=== PATIENT | male | born 2000 | race Caucasian/White ===

== ENCOUNTER 2025-07-11 13:40 | Emergency (ER) | payer BC, SELFPAY ==
[2025-07-11] VITALS (50 sets, daily range): BP systolic 101–160; BP diastolic 71–123; PULSE 58–137; RESP 7–33; TEMP 36.7; O2SAT 90–100; BMI 22.2
--- OUTSIDE RECORDS SUMMARY | 2025-07-11 13:43 | XMS_ITS | Clinical Summary ---
Author Organization [facility] Address [address] [place] [address] Care Team Providers Care Welder [employer] Name Role Phone Cordelia Birmingham MD Primary Care Provider Allergies Active Allergy Reactions Criticality Noted Date Comments Pollen Extracts Other - Describe In Comment Field Low 01/12/2019 Seasonal allergies; trees, plants, pollen Medications loratadine (CLARITIN) 10 mg tablet Take 1 tablet by mouth once daily if needed for Allergy Symptoms. 0 07/17/20 17 Active cholecalciferol, Vitamin D3, 2,000 unit tablet Take 1 Tablet (2,000 units) by mouth once daily. 0 09/11/20 21 Active methylphenidate HCl (Ritalin LA) 10 mg SR capsuleIndication s:ADHD (attention deficit hyperactivity disorder), inattentive type Take 1 Capsule (10 mg) by mouth once daily. 30 Capsule 03/19/20 25 Active FLUoxetine (PROZAC) 20 mg capsuleIndication s:Mild episode of recurrent major depressive disorder Take 1 Capsule (20 mg) by mouth once daily. 90 Capsule 5 4:18 PM CDT 06/15/20 25 Active spironolactone (ALDACTONE) 50 mg tabletIndications :Gender 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 Take 1 Tablet (50 mg) by mouth two times daily. 180 Tablet 5 4:18 PM CDT 06/15/20 Active estradiol valerate (DELESTROGEN) 10 mg/mL intramuscular oilIndications:Ge nder 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 Inject 5 mg intramuscular once weekly. 5 mL 06/22/20 25 025 Active Safety Randolph (BD Eclipse) 25 gauge x 1 ndleIndications:G wilfredo 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 As directed. 100 Each 06/22/20 25 Active Syringe (Disposable) 1 mL syrgIndications:G wilfredo 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 As directed. 1 mL syringe combined with 25G 1 inch needle 100 Each 06/23/20 25 Active Syringe with Needle (Disp) 3 mL 25 gauge x 1 syrgIndications:G wilfredo 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 As directed. 100 Each 06/23/20 25 Active FLUoxetine 40 mg capsuleIndication s:Mild episode of recurrent major depressive disorder Take 1 Capsule (40 mg) by mouth once daily. 30 Capsule 5 5 4:53 PM CDT 03/09/20 25 025 Discontin ued(*Medi cation adjustmen t) estradioL 1 mg tabletIndications :Gender 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 Take 6 Tablets (6 mg) by mouth once daily. 540 Tablet 5 2:31 PM CDT 03/10/20 25 025 Discontin ued(Reord er (E-cancel not sent)) spironolactone 50 mg tabletIndications :Gender 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 Take 1 Tablet (50 mg) by mouth two times daily. 120 Tablet 05/07/20 25 025 Discontin ued(Reord er (E-cancel not sent)) estradioL (ESTRACE) 1 mg tabletIndications :Gender 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 Take 6 Tablets (6 mg) by mouth once daily. 540 Tablet 06/15/20 25 025 Discontin ued(*Medi cation adjustmen t) Syringe (Disposable) 1 mL syrgIndications:G wilfredo 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 As directed. 100 Each 06/22/20 25 025 Discontin ued(Reord er (E-cancel not sent)) Active Problems Problem Noted Date Diagnosed Date Controlled substance agreement signed 01/22/2022 Overview (01/22/2022): Signed 01/22/2022 Haley Gonzales DNP, MEDICAL DEVICE ENGINEER, [employer] APPRENTICE/NFLD Psychairty Anxiety and depression 05/29/2021 Moderate recurrent major depression Attention deficit hyperactivity disorder (ADHD) Gender dysphoria Encounters Date Type Department Care Team Description 06/28/2025 2:00 PM CDT Education [facility] [address] [place] [address] Education (Estradiol IM injection teaching) 06/28/2025 Travel 06/25/2025 Telephone [facility] [address] [place] [address] Cordelia Birmingham MD Prior Authorization (estradiol valerate (DELESTROGEN) 10 mg/mL intramuscular oil APPROVED June 25, 2025 - 11/24/2222) 06/23/[address] [address] Cordelia Birmingham MD Pharmacist Medication Management (Syringe (Disposable) 1 mL syrg//Safety Randolph (BD Eclipse) 25 gauge x 1 ndle) 06/22/2025 Telephone [facility] [address] [place] [address] Cordelia Birmingham MD Follow Up 06/15/2025 2:50 PM CDT Office Visit [address] [address] Cordelia Birmingham MD Medication Management 06/15/2025 Travel 06/05/2025 Travel 05/05/[address] [address] Cordelia Birmingham MD Refill Request (Spironolactone) from Last 3 Months Immunizations Immunization Administration Dates Next Due AMB Influenza, (Flumist) Ashley e Intranasal,LAIV4 (Flu Clinic Only) 09/29/2010,09/22/2008 COVID-19 vaccine ([email or web address] 30mcg/0.3mL) 12YO+ BIVALENT PF, MDV 09/14/2022 COVID-19 vaccine ([employer] 30mcg/0.3mL) PF, MDV 03/25/2021,03/03/2021 DTaP 05/07/2006, 3,2001,09/15,2001 HIB-HepB (Comvax) 2001,2001 HPV 9 (Gardasil 9) 01/12/2019,10/10/2017, 017 Hepatitis A (Peds) 01/12/2019,10/10/2017 Hepatitis B (Peds) 10/10/2017 INFLUENZA, IIV3 PF (AGE >= 6 MO) 08/25/2024 Inactivated Polio Vaccine 05/07/2006,,2001,07/18 Influenza Virus, Unspecified 08/31/2021, 09/21/2020,09/03/2018,10/10,09/03/2016,09/07/2015,08/26/2014 ,11/16/2013,09/29/2012,09/17/2011 Influenza, IIV3 (Age 6-35 mos) 09/17/2011 Influenza, IIV3 (Age >=3 years) 11/16/2013,09/29,09/17/2011 Influenza, IIV4 09/14/2022,,09/21/2020,10/10,09/03/2016,08/26/2014 Influenza, IIV4 (=>6mos) MDV 09/03/2018,09/07/20 15 Influenza, Injectable, Mdck, Quadrivalent, W/preservative 09/21/2020 Influenza,LAIV3 Live Intrana krishan (Flumist) 09/29/2010,09/22/2008 Influenza,LAIV4 Live Intrana krishan (Flumist) 09/29/2010,09/23/2009,09/22/2008 MENINGOCOCCAL VACCINE 2 VIAL 2MO-55YO (MENVEO) 07/17/2017 MMR 07/17/2017,05/05/2002 Meningococcal B 09/22/2019,08/06/2019 Pneumococcal conj 7-Valent (Prevnar 7) 0 05/07/2002,02/04/2002,2001,07/18 Tdap 08/31/2023,09/29/2013 Varicella Vaccine 09/29/2013,02/09/2004 Family History Medical History Relation Name Comments Anxiety disorder Sister Cancer-colon No Family History Cancer-prostate No Family History Diabetes No Family History Heart Disease No Family History Relation Name Status Comments Sister Social History Tobacco Use Types Packs/Day Years Used Date Smoking Tobacco: Never Smokeless Tobacco: Never Tobacco Cessation:Counseling Given: Not Answered Comments:no exposure Alcohol Use Standard Drinks/Week Comments Yes 0 (1 standard drink = 0.6 oz pur e alcohol) Occasionally. - 11/26/2022 PHQ-2 Answer Date Recorded PHQ-2 TOTAL SCORE 0 03/09/2025 Social Connections Answer Date Recorded Do you often feel lonely or isolated from those around you? 0 12/07/2024 Alcohol Use Answer Date Recorded How often do you have a drink containing alcohol ? 2 07/31/2022 Average Number of Drinks Not on file 022 Frequency of Binge Drinking Not on file 04/2022 Financial Resource Strain Answer Date R ecorded Difficulty of Paying Living Expenses 3 12/07/2024 Difficulty of Paying Living Expenses Not on file 12/07/2024 Food Insecurity Answer Date Recorded Do you worry your food will run out before you are able to buy more? 1 12/07/2024 Transportation Needs Answer Date Record ed Does lack of transportation keep you from medica l appointments? 1 12/07/2024 Does lack of transportation keep you from work, meetings or getting things that you need? 1 12/07/2024 Housing Stability Answer Date Recorded What is your housing situation today? 1 12/07/2024 Utilities Answer Date Recorded Do you have trouble paying f or utilities (for example, heat, electricity, water, phone)? 1 12/07/2024 Sex and Gender Information Value Date Recorded Sex Assigned at Male 09/11/2021 12:45 PM CDT Legal Sex Male 5:24 AM HOOKER ON Gender Identity Transgender Female 04/25/2025 9: 35 PM CDT Sexual Orientation Bisexual 09/11/2021 12 :45 PM CDT Obstetrics History Last Filed Vital Signs Vital Sign Reading Time Taken Comments Blood Pressure 124/74 06/15/2025 3:03 PM CDT Pulse 93 06/15/2025 3:03 PM CDT Temperature 36.9 C (98.5 F) 11/23/2022 2:03 PM HOOKER ON Respiratory Rate 15 02/08/2022 9:48 AM CDT Oxygen Saturation 98% 06/15/2025 3:03 PM CDT Inhaled Oxygen Concentration - - Weight 71.2 kg (157 lb) 06/15/2025 3:03 PM CDT Height 176.5 cm (5' 9.5) 04/16/2023 10:40 AM CD T Body Mass Index 22.85 04/16/2023 10:40 AM CDT Plan of Treatment Upcoming Encounters Date Type Department Care Team (Late st Contact Info) Description 08/02/2025 1:00 PM CDT Office Visit [facility] [address] [place] [address] Haley Gonzales, VERA [address] [place] [address] 09/15/2025 2:00 PM CDT Office Visit [facility] [address] [place] [address] Cordelia Birmingham MD [address] [place] [address] Health Maintenance Due Date Last Done Comments BMI (ht and wt on same day) for age 18+ 04/16/2024 04/16/2023, 11/26/2022, 11/23/2022, Additional history exists Chlamydia for age 16-24 04/15/2025 04/15/2024, 04/15 Influenza Vaccine (#1) 2025 , 09/14/2022, 08/31/2021, Additional history exists Depression screening for age 12+ 03/10/2026 03/10/2025, 03/09/2025, 11/27/2024, Additional history exists Tetanus booster 08/31/2033 08/31/2023, 09/29/2013 Pap test for age 21-65 04/23/2073 Postp oned from 2022 (Other) Pneumococcal series for age 6-49 Aged Out 05/07/2002, 02/04/2002, 2001, Additional history exists No longer eligible based on patient's age to complete this topic Hepatitis B series for 19+ Completed 10/10, 2001, 2001 HPV series for age 9-26 Completed 01/12/20 19, 10/10/2017, 07/17/2017 HPV series for age 9-26 Completed 01/12/20 19, 10/10/2017, 07/17/2017 HIV for age 15-65 Completed 04/15/2024 Hepatitis C screening for age 18-79 Completed 04/15/2024 COVID-19 vaccine series Completed 08/25/20, 09/14/2022, 03/25/2021, Additional history exists Procedures Procedure Name Priority Date/Time Associated Diagnosis Comments COMP METABOLIC PANEL Routine 06/15/2025 4:00 PM CDT Gender 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 ESTRADIOL Routine 06/15/2025 4:00 PM CDT Gender 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 TESTOSTERONE,TOTA L Routine 06/15/2025 4:00 PM CDT Gender 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 GC CHLAMYDIA TRACH PROBE Routine 04/15/2024 12:14 PM CDT Has multiple sexual partners ANTI HIV 1/2 Routine 04/15/2024 12:11 PM CDT Screening for HIV (human immunodeficiency virus) ANTI HCV Routine 04/15/2024 12:11 PM CDT Need for hepatitis C screening test from Last 3 Months or Most Recently Relevant to Health Maintenance Results * TESTOSTERONE,TOTAL (06/15/2025 4:00 PM CDT) TESTOSTERONE, TOTAL, MS 364 250 - 1,100 ng/dL [facility] Comment: Men with clinically significant hypogonadal symptoms and testosterone values repeatedly in the range of the 200-300 ng/dL or less, may benefit from testosterone treatment after adequate risk and benefits counseling. For additional information, please refer to https://education.Anametrix.Tradono/faq/TotalTestosteroneLCMSMS (This link is being provided for informational/educational purposes only.) (Note) This test was developed and its analytical performance characteristics have been determined by [employer]. It has not been cleared or approved by the FDA. This assay has been validated pursuant to the CLIA regulations and is used for clinical purposes. [facility] [address] [facility] [address] [facility] [address] Carmencita Weiss MD, PhD Blood BLOOD SPECIMEN / Unknown 06/15/2025 4:00 PM CDT 06/15/2025 4:01 PM CDT Cordelia Birmingham MD CHEMISTRY Final Resul t [facility] [address] [place] [phone], [facility] [address] [address], [address] [place] [address] * (ABNORMAL) ESTRADIOL (06/15/2025 4:00 PM CDT) ESTRADIOL 40(H) < OR = 39 pg/mL Last 2 Left[facility] Comment: Reference range established on post-pubertal patient population. No pre-pubertal reference range established using this assay. For any patients for whom low Estradiol levels are anticipated (e.g. males, pre-pubertal children and hypogonadal/post-menopausal females), the Last 2 Left [facility] Estradiol, Ultrasensitive, LCMSMS assay is recommended (order code 53707). Please note: patients being treated with the drug fulvestrant (Faslodex(R)) have demonstrated significant interference in immunoassay methods for estradiol measurement. The cross reactivity could lead to falsely elevated estradiol test results leading to an inappropriate clinical assessment of estrogen status. Last 2 Left order code [id number], Ultrasensitive LC/MS/MS demonstrates negligible cross reactivity with fulvestrant. Blood BLOOD SPECIMEN / Unknown 06/15/2025 4:00 PM CDT 06/15/2025 4:01 PM CDT us Cordelia Birmingham MD SEND OUTS Final Resul t [facility] [address] [place] [address], [facility] [address] [place] [address] * (ABNORMAL) COMP METABOLIC PANEL (06/15/2025 4:00 PM CDT) GLUCOSE 77 65 - 99 mg/dL [facility] Comment: Fasting reference interval UREA NITROGEN (BUN) 16 7 - 25 mg/dL [facility] CREATININE 0.97 0.60 - 1.24 mg/dL [facility] EGFR 112 > OR = 60 mL/min/1. 73m2 [facility] BUN/CREATININE RATIO SEE NOTE: 6 - 22 (calc) [facility] Comment: Not Reported: BUN and Creatinine are within reference range. SODIUM 138 135 - 146 mmol/L [facility] POTASSIUM 4.0 3.5 - 5.3 mmol/L [facility] CHLORIDE 102 98 - 110 mmol/L [facility] CARBON DIOXIDE 27 20 - 32 mmol/L [facility] CALCIUM 9.9 8.6 - 10.3 mg/dL [facility] PROTEIN, TOTAL 7.2 6.1 - 8.1 g/dL [facility] ALBUMIN 4.7 3.6 - 5.1 g/dL [facility] GLOBULIN 2.5 1.9 - 3.7 g/dL (calc) [facility] ALBUMIN/GLOBULIN RATIO 1.9 1.0 - 2.5 (calc) [facility] BILIRUBIN, TOTAL 0.6 0.2 - 1.2 mg/dL [facility] ALKALINE PHOSPHATASE 51 36 - 130 U/L [facility] AST 18 10 - 40 U/L [facility] ALT 6(L) 9 - 46 U/L [facility] Blood BLOOD SPECIMEN / Unknown 06/15/2025 4:00 PM CDT 06/15/2025 4:01 PM CDT Cordelia Birmingham MD CHEMISTRY Final Resul t Performing Organization Address [facility] Co de Phone Number [facility] [address] [place] [address], [facility] [employer] [address] [place] [address] * GC & CHLAMYDIA DNA PCR [[id number]] (04/15/2024 12:14 PM CDT) Pathologist [facility] CHLAMYDIA PROBE Negative 12:20 PM CDT [facility] N GONORRHOEAE PROBE Negative 04/16/2024 12:20 PM CDT [facility] Other URINE SPECIMEN / Unknown Non-Blood / Unknown 04/15/2024 12:14 PM CDT 04/15/2024 12:14 PM CDT Cordelia Birmingham MD MICROBIOLOGY Final Resul t Performing Organization Address City/[facility]/ZIP Co de Phone Number [facility] [address] [place] [address], * ANTI HCV (04/15/2024 12:11 PM CDT) Pathologist [facility] HEPATITIS C ANTIBODY Non-Reacti ve Non-React brianna 04/16/2024 1:17 AM CDT [facility] Comment:Please note, per www .CDC.gov: If a patient is known to be at high risk of HCV infection, or is symptomatic, and the physician's suspicion of HCV infection is high, HCV RNA testing is often employed and is of diagnostic value, even after an initial negative anti-HCV test result. Blood BLOOD SPECIMEN / Unknown Venipuncture / Unknown 04/15/2024 12:11 PM CDT 04/15/2024 12:12 PM CDT us Cordelia Birmingham MD SEND OUTS Final Resul t Performing Organization Address City/[facility] Co de Phone Number [facility] [address] [place] [address], [place] * ANTI HIV 1/2 [42485.0] (04/15/2024 12:11 PM CDT) HIV-1/HIV-2 SCREEN Non-Reacti ve Non-Reacti ve 04/16/2024 1:11 AM CDT [facility] Comment:HIV-1 p24 and HIV-1/ HIV-2 Ab Not Detected. Blood BLOOD SPECIMEN / Unknown Venipuncture / Unknown 04/15/2024 12:11 PM CDT 04/15/2024 12:12 PM CDT us Cordelia Birmingham MD SEND OUTS Final Resul t Performing Organization Address [facility] Co de Phone Number [facility] [address] [place] [id number], [place] from Last 3 Months or Most Recently Relevant to Health Maintenance Insurance [facility] Care Teams [employer] Relationship Specialty Start Date End Date Cordelia Birmingham MD [address] [place] [address] PCP - General Family Practice 07/16/24
[2025-07-11] MEDS: KETAMINE HCL 100 MG/ML inj 400 MG IM (13:58)
[2025-07-11 14:43] LABS: Hematocrit* 39.1 % (37.0-53.0); Hemoglobin* 13.3 gm/dL (13.5-17.5); Immature Granulocytes Abs Auto 0.08 K/uL (0.00-0.30); Immature Granulocytes Pct Auto 0.9 %; Lymphocytes Absolute Auto 2.71 K/uL (0.90-2.90); Mean Corpuscular HGB Conc 34 gm/dL (32-36); Mean Corpuscular Hemoglobin 30 pg (26-34); Mean Corpuscular Volume 90 fL (80-100); RDW Coefficient of Variation % 11.7 % (11.5-15.5); Red Blood Count* 4.37 m/uL (4.30-5.90); White Blood Count* 9.33 K/uL (4.50-11.00)
[2025-07-11 14:47] LABS: Slide Review Reflex No
[2025-07-11 14:51] LABS: Albumin* 5.3 g/dL (3.3-5.0)
[2025-07-11 14:52] LABS: Chloride* 102 mmol/L (96-114); Sodium* 140 mmol/L (135-149)
[2025-07-11 14:54] LABS: Alanine Aminotransferase* 27 U/L (4-50); Aspartate Amino Transferase* 49 U/L (12-35); Blood Urea Nitrogen* 24 mg/dL (5-24); Creatinine* 1.2 mg/dL (0.5-1.5); Est. Creatinine Clearance* 91.35; Estimated Glomerular Filt Rate 87 ml/min
[2025-07-11 14:55] LABS: Alkaline Phosphatase* 41 U/L (40-150); Bilirubin Total* 0.9 mg/dL (0.1-1.5); Calcium* 9.9 mg/dL (8.4-10.6); Carbon Dioxide* 16 mmol/L (20-32); Glucose* 179 mg/dL (60-115); Total Protein* 8.4 g/dL (6.0-8.3)
[2025-07-11 14:55] LABS: Cannabinoid Screen Urine Negative (Negative); Methamphetamines Screen Urine Negative (Negative); Tricyclic Antidepressant Urine Negative (Negative)
[2025-07-11 14:57] LABS: Acetaminophen* < 10.0 ug/mL (10.0-30.0); Anion Gap 22 mEq/L (7-15); Ethanol* < 0.01 % (0.01-0.03); Potassium* 2.8 mmol/L (3.6-5.1); Salicylate* < 1.0 mg/dL (1.0-10)
--- NOTE | 2025-07-11 15:00 | ED.GENADULT ---
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 necessary after the ketamine created adequate sedation. Additional history obtained from the patient's family. Multiple bedside rechecks. Initially drowsy after the ketamine a gradually more and more awake. Recheck-seem to be escalating again and still very unusual behavior and speech patterns. P.r.n. for oral Zyprexa ordered Recheck-commotion occurred in the patient's room. Nurses were trying to off from the p.r.n. Zyprexa and he was refusing. The patient then became more agitated. SHe was trying to slide toward the door but nurses and security stopped him. There was clearly increasing agitation and paranoia. He was hiding behind the folding chair that nurses and placed in his room for his family. When she eventually did give that away but slid it firmly toward nursing. He ultimately was able to deescalate and got himself back into bed. They ultimately did take the offered Zyprexa 0DT from the nurses. However we believe he probably through it rather than swallowed it. Overall, his thought process is still seem paranoid and disorganized. However he is not violent. They has moved back to his bed and says that he is willing to talk to telehealth. Therefore we will not further escalate to push for IM Zyprexa at this time. To give him a IM shot would require physical restraints which might actually further escalate the risk of harm. Recheck-seems to still be deescalated with her mother and his girlfriend Attempting to do a telehealth assessment with Shayan. Patient was uncooperative. Unclear what happened but the iPad was turned off. May have malfunction or may have been turned off by the patient. Recheck-patient increasing agitated. Was on the floor of his room and trying to crawl out the door. Was not responding to verbal deescalation from the nurses. Another Dr. Gates was activated. With show force the patient did move back to his bed. Nurses administered IM Zyprexa 10 mg. With ongoing agitation and no improvement after his previous or old dose, I am highly suspicious that he, in fact, did not take it. Recheck attempting again to do telehealth with Shyaan. Patient was uncooperative with initial assessment and then was sleepy. Mental health assessment could not be performed. At this point with reasonable clinical confidence I think he is medically clear for mental health evaluation once he is awake and able to cooperate with exam. Recheck-patient's mother updated at 9:00 p.m.. Signed out to my partner Dr. Figueroa. Recheck-another attempt for Shayan <Dileep Marrero MD - Last Filed: 07/11/25 21:20> Vital Signs Vital signs: Initial Vital Signs Pulse Rate 137 H 07/11/25 14:07 Respiratory Rate 23 07/11/25 14:07 Blood Pressure 160/84 H 07/11/25 14:07 Blood Pressure Mean 109 H 07/11/25 14:07 Blood Pressure Position Semi-Fowlers 07/11/25 14:07 Pulse Oximetry 93 07/11/25 14:07 Vital Signs Pulse Rate 137 H 07/11/25 14:07 Respiratory Rate 23 07/11/25 14:07 Blood Pressure 160/84 H 07/11/25 14:07 Pulse Oximetry 93 07/11/25 14:07 Temperature 98.0 F 07/11/25 14:26 Pulse Rate 205 H 07/12/25 15:39 Respiratory Rate 18 07/12/25 15:30 Blood Pressure 116/76 07/12/25 15:39 Pulse Oximetry 100 07/12/25 15:39 Oxygen Delivery Method Room Air 07/12/25 15:30 Oxygen Flow Rate 2 07/11/25 16:16 <Dileep Marrero MD - Last Filed: 07/11/25 21:20> Initial Vital Signs Pulse Rate 137 H 07/11/25 14:07 Respiratory Rate 23 07/11/25 14:07 Blood Pressure 160/84 H 07/11/25 14:07 Blood Pressure Mean 109 H 07/11/25 14:07 Blood Pressure Position Semi-Fowlers 07/11/25 14:07 Pulse Oximetry 93 07/11/25 14:07 Vital Signs Pulse Rate 137 H 07/11/25 14:07 Respiratory Rate 23 07/11/25 14:07 Blood Pressure 160/84 H 07/11/25 14:07 Pulse Oximetry 93 07/11/25 14:07 Temperature 98.0 F 07/11/25 14:26 Pulse Rate 205 H 07/12/25 15:39 Respiratory Rate 18 07/12/25 15:30 Blood Pressure 116/76 07/12/25 15:39 Pulse Oximetry 100 07/12/25 15:39 Oxygen Delivery Method Room Air 07/12/25 15:30 Oxygen Flow Rate 2 07/11/25 16:16 <Derick Medrano MD - Last Filed: 07/13/25 17:03> Medications Administered Medications: Discontinued Medications Generic Name Dose Route Start Last Admin Trade Name Freq PRN Reason Stop Dose Admin Sodium Chloride 1,000 mls @ 1,000 mls/hr 07/11/25 14:30 07/11/25 15:10 0.9 % Sodium Chloride 1000 Ml IV 07/11/25 15:29 Infused .Q1H JUANJOSE Infusion Potassium Chloride 10 meq in 100 mls @ 100 mls/hr 07/11/25 15:17 07/11/25 17:00 Potassium Chloride IVPB 07/11/25 16:16 Infused ONCE ONE Infusion Magnesium Sulfate 2 gm in 50 mls @ 25 mls/hr 07/11/25 15:17 07/11/25 18:55 Magnesium Iv IVPB 07/11/25 17:16 Infused ONCE ONE Infusion Lactated Ringer's 1,000 mls @ 1,000 mls/hr 07/11/25 16:09 07/11/25 17:15 Lactated Ringers 1000 Ml IV 07/11/25 17:08 Infused .Q1H ONE Infusion Ketamine HCl 400 mg 07/11/25 14:20 07/11/25 13:58 Ketamine Hcl 100 Mg/Ml Inj IM 07/11/25 14:21 400 mg ONCE ONE Administration Olanzapine 10 mg 07/11/25 14:48 07/11/25 19:57 Olanzapine 5 Mg/Ml Inj IM 07/11/25 14:49 10 mg ONCE ONE Administration Olanzapine 10 mg 07/11/25 15:57 07/11/25 18:45 Olanzapine 5 Mg Tab.Rapdis PO 07/11/25 15:58 10 mg ONCE ONE Administration Ondansetron HCl 4 mg 07/11/25 17:10 07/11/25 17:17 Ondansetron 2 Mg/Ml Inj IVP 07/11/25 17:11 4 mg ONCE ONE Administration Potassium Bicarbonate 50 meq 07/11/25 16:03 07/11/25 16:10 Potassium Bicarb 25 Meq Effervescent Tab PO 07/11/25 16:04 50 meq ONCE ONE Administration <Dileep Marrero MD - Last Filed: 07/11/25 21:20> Discontinued Medications Generic Name Dose Route Start Last Admin Trade Name Freq PRN Reason Stop Dose Admin Sodium Chloride 1,000 mls @ 1,000 mls/hr 07/11/25 14:30 07/11/25 15:10 0.9 % Sodium Chloride 1000 Ml IV 07/11/25 15:29 Infused .Q1H JUANJOSE Infusion Potassium Chloride 10 meq in 100 mls @ 100 mls/hr 07/11/25 15:17 07/11/25 17:00 Potassium Chloride IVPB 07/11/25 16:16 Infused ONCE ONE Infusion Magnesium Sulfate 2 gm in 50 mls @ 25 mls/hr 07/11/25 15:17 07/11/25 18:55 Magnesium Iv IVPB 07/11/25 17:16 Infused ONCE ONE Infusion Lactated Ringer's 1,000 mls @ 1,000 mls/hr 07/11/25 16:09 07/11/25 17:15 Lactated Ringers 1000 Ml IV 07/11/25 17:08 Infused .Q1H ONE Infusion Ketamine HCl 400 mg 07/11/25 14:20 07/11/25 13:58 Ketamine Hcl 100 Mg/Ml Inj IM 07/11/25 14:21 400 mg ONCE ONE Administration Olanzapine 10 mg 07/11/25 14:48 07/11/25 19:57 Olanzapine 5 Mg/Ml Inj IM 07/11/25 14:49 10 mg ONCE ONE Administration Olanzapine 10 mg 07/11/25 15:57 07/11/25 18:45 Olanzapine 5 Mg Tab.Rapdis PO 07/11/25 15:58 10 mg ONCE ONE Administration Ondansetron HCl 4 mg 07/11/25 17:10 07/11/25 17:17 Ondansetron 2 Mg/Ml Inj IVP 07/11/25 17:11 4 mg ONCE ONE Administration Potassium Bicarbonate 50 meq 07/11/25 16:03 07/11/25 16:10 Potassium Bicarb 25 Meq Effervescent Tab PO 07/11/25 16:04 50 meq ONCE ONE Administration <Derick Medrano MD - Last Filed: 07/13/25 17:03> Medical Decision Making MDM Narrative Medical decision making narrative: 25-year-old biological male, on hormone therapy and identifies as female presenting to the ER today with acute alteration in mental status with a retic behavior, increasing paranoia and agitation that began overnight and is worsened, escalating this morning. Patient presents with significant agitation, screaming, disorganized thoughts, and also violent behavior toward myself and medical staff. Patient required a ?Dr. Gates? response and intramuscular ketamine at ER triage. And was brought back to ER bed 5. He was treated with IM ketamine because of acute agitation, altered mental status, and violent aggressive behavior at triage. He was brought immediately back to ER bed 5 and placed on monitors. He did well in the ketamine. No complication or airway compromise. Subsequently he was alert and we were able to take him off the monitors.. Additional history from the patient's family it sounds like this is a new condition for the patient. No previous diagnosis of schizophrenia or psychosis or elen. No known drug abuse or chemical intoxication per the patient's girlfriend. Differential for this presentation is broad. Consider acute onset psychosis or schizophrenia. Also considered drug intoxication or withdrawal. Urine drug screen is negative. Alcohol level not detectable. Blood sugar is normal. Patient has a normal body temperature. No fever. White count normal. Differential on the white count normal. No sign of infection or meningitis or encephalitis. No known history of head trauma but with new abnormal behavior such as this, head CT is obtained and shows no acute intracranial hemorrhage. TSH is normal. Heart rate was elevated in the 140s of presentation, likely due to agitation. Once the patient was calm heart rate came down to about 100 and maintain sinus. When the patient had a repeat anger and agitation heart rate did go up to about 120. I think this is inappropriate tachycardia given the patient's agitation and does not necessarily represent sepsis, bleeding, or evolving shock. There are no reports of any suicidal statements at home. Tylenol and salicylate levels are obtained and are negative. LFTs are normal except for minimal abnormal at of AST of 49. No prior labs for comparison. The patient does have a low bicarb level with a bicarb of 16. Anion gap is 22. Blood sugar is 179. Patient does not have a known history of diabetes. After 1 L of IV saline and 1 L of IV LR, repeat metabolic profile shows complete resolution of his metabolic abnormalities. Potassium normal eyes, bicarb normal eyes, anion gap closed. Blood sugar improved after IV fluids. CK is mildly elevated at 314. Suspect that this is due to exertion rather than a crush or burn injury. Not high enough to raise concern for kidney damage or rhabdomyolysis. Recheck shows minimally elevated CK gait 500. Again not elevated enough to be concerning for acute kidney injury. Patient received 2 L of fluid here in the ER. At this point with reasonable clinical confidence I think he is stable for mental health evaluation. Signed out to my partner Dr. Reilly at 9:00 p.m.. <Dileep Marrero MD - Last Filed: 07/11/25 21:20> 25-year-old biological male, on hormone therapy and identifies as female presenting to the ER today with acute alteration in mental status with a retic behavior, increasing paranoia and agitation that began overnight and is worsened, escalating this morning. Patient presents with significant agitation, screaming, disorganized thoughts, and also violent behavior toward myself and medical staff. Patient required a ?Dr. Gates? response and intramuscular ketamine at ER triage. And was brought back to ER bed 5. He was treated with IM ketamine because of acute agitation, altered mental status, and violent aggressive behavior at triage. He was brought immediately back to ER bed 5 and placed on monitors. He did well in the ketamine. No complication or airway compromise. Subsequently he was alert and we were able to take him off the monitors.. Additional history from the patient's family it sounds like this is a new condition for the patient. No previous diagnosis of schizophrenia or psychosis or elen. No known drug abuse or chemical intoxication per the patient's girlfriend. Differential for this presentation is broad. Consider acute onset psychosis or schizophrenia. Also considered drug intoxication or withdrawal. Urine drug screen is negative. Alcohol level not detectable. Blood sugar is normal. Patient has a normal body temperature. No fever. White count normal. Differential on the white count normal. No sign of infection or meningitis or encephalitis. No known history of head trauma but with new abnormal behavior such as this, head CT is obtained and shows no acute intracranial hemorrhage. TSH is normal. Heart rate was elevated in the 140s of presentation, likely due to agitation. Once the patient was calm heart rate came down to about 100 and maintain sinus. When the patient had a repeat anger and agitation heart rate did go up to about 120. I think this is inappropriate tachycardia given the patient's agitation and does not necessarily represent sepsis, bleeding, or evolving shock. There are no reports of any suicidal statements at home. Tylenol and salicylate levels are obtained and are negative. LFTs are normal except for minimal abnormal at of AST of 49. No prior labs for comparison. The patient does have a low bicarb level with a bicarb of 16. Anion gap is 22. Blood sugar is 179. Patient does not have a known history of diabetes. After 1 L of IV saline and 1 L of IV LR, repeat metabolic profile shows complete resolution of his metabolic abnormalities. Potassium normal eyes, bicarb normal eyes, anion gap closed. Blood sugar improved after IV fluids. CK is mildly elevated at 314. Suspect that this is due to exertion rather than a crush or burn injury. Not high enough to raise concern for kidney damage or rhabdomyolysis. Recheck shows minimally elevated CK gait 500. Again not elevated enough to be concerning for acute kidney injury. Patient received 2 L of fluid here in the ER. At this point with reasonable clinical confidence I think he is stable for mental health evaluation. Signed out to my partner Dr. Reilly at 9:00 p.m.. Marcela -- I received care of Wolf at change of shift. I reviewed record. Had settled to sleep and has continued to do so without event and restraint through the overnight in the emergency department. I have gone to reassess this morning but remained sleeping. Will still need formal reassessment when able to remain awake. I did call to mom to update. Handing off at change of shift. <Derick Medrano MD - Last Filed: 07/13/25 17:03> Lab Data Labs: Lab Results 07/11/25 07/11/25 07/11/25 Range/Units 14:15 14:15 14:20 WBC (4.50-11.00) K/uL RBC (4.30-5.90) m/uL Hgb (13.5-17.5) gm/dL Hct (37.0-53.0) % MCV (80-100) fL MCH (26-34) pg MCHC (32-36) gm/dL RDW Coeff of Naila (11.5-15.5) % Plt Count (140-440) K/uL Neut % (Auto) (42.0-72.0) % Lymph % (Auto) (20-44) % [place] % (Auto) (0.0-11.0) % Eos % (Auto) (0.0-7.0) % Baso % (Auto) (0.0-3.0) % Neut # (Auto) (1.7-7.0) K/uL Lymph # (Auto) (0.90-2.90) K/uL [place] # (Auto) (0.00-0.90) K/UL Eos # (Auto) (0.00-0.50) K/uL Baso # (Auto) (0.00-0.30) K/uL Abs Immat Gran (auto) (0.00-0.30) K/uL Imm/Tot Granulo (auto) % VBG pH (7.32-7.43) VBG pCO2 (40-50) mmHG VBG pO2 (25-47) mmHG VBG HCO3 (21-28) mmol/L Sodium 140 (135-149) mmol/L Potassium 2.8 L* (3.6-5.1) mmol/L Chloride 102 (96-114) mmol/L Carbon Dioxide 16 L (20-32) mmol/L Anion Gap 22 H (7-15) mEq/L BUN 24 (5-24) mg/dL Creatinine 1.2 (0.5-1.5) mg/dL Estimated Creat Clear 91.35 Estimated GFR 87 ml/min Glucose 179 H (60-115) mg/dL Calcium 9.9 (8.4-10.6) mg/dL Total Bilirubin 0.9 (0.1-1.5) mg/dL AST 49 H (12-35) U/L ALT 27 (4-50) U/L Alkaline Phosphatase 41 (40-150) U/L Total Creatine Kinase 344 H Cancelled (54-186) U/L Total Protein 8.4 H (6.0-8.3) g/dL Albumin 5.3 H (3.3-5.0) g/dL TSH (0.270-4.200) uIU/mL Salicylates < 1.0 L (1.0-10) mg/dL Urine Opiates Screen Negative (Negative) Ur Buprenorphine Scrn Negative (Negative) Ur Oxycodone Screen Negative (Negative) Urine Methadone Screen Negative (Negative) Acetaminophen < 10.0 (10.0-30.0) ug/mL Ur Barbiturates Screen Negative (Negative) U Tricyclic Antidepress Negative (Negative) Ur Phencyclidine Scrn Negative (Negative) Ur Amphetamines Screen Negative (Negative) U Methamphetamines Scrn Negative (Negative) U Benzodiazepines Scrn Negative (Negative) Urine Cocaine Screen Negative (Negative) U Marijuana (THC) Screen Negative (Negative) Ur Drug Screen Comment See Note Ethyl Alcohol < 0.01 (0.01-0.03) % SARS-CoV-2 (PCR) Negative SARS-CoV-2 (Negative) SARS-CoV-2 Ag (Rapid) 07/11/25 07/11/25 Range/Units 14:21 17:23 WBC 9.33 (4.50-11.00) K/uL RBC 4.37 (4.30-5.90) m/uL Hgb 13.3 L (13.5-17.5) gm/dL Hct 39.1 (37.0-53.0) % MCV 90 (80-100) fL MCH 30 (26-34) pg MCHC 34 (32-36) gm/dL RDW Coeff of Naila 11.7 (11.5-15.5) % Plt Count 255 (140-440) K/uL Neut % (Auto) 60.1 (42.0-72.0) % Lymph % (Auto) 29.0 (20-44) % [place] % (Auto) 8.0 (0.0-11.0) % Eos % (Auto) 1.6 (0.0-7.0) % Baso % (Auto) 0.4 (0.0-3.0) % Neut # (Auto) 5.60 (1.7-7.0) K/uL Lymph # (Auto) 2.71 (0.90-2.90) K/uL [place] # (Auto) 0.70 (0.00-0.90) K/UL Eos # (Auto) 0.15 (0.00-0.50) K/uL Baso # (Auto) 0.04 (0.00-0.30) K/uL Abs Immat Gran (auto) 0.08 (0.00-0.30) K/uL Imm/Tot Granulo (auto) 0.9 % VBG pH 7.409 (7.32-7.43) VBG pCO2 38 L (40-50) mmHG VBG pO2 39.6 (25-47) mmHG VBG HCO3 24 (21-28) mmol/L Sodium 138 (135-149) mmol/L Potassium 3.9 (3.6-5.1) mmol/L Chloride 106 (96-114) mmol/L Carbon Dioxide 24 (20-32) mmol/L Anion Gap 8 (7-15) mEq/L BUN 21 (5-24) mg/dL Creatinine 0.9 (0.5-1.5) mg/dL Estimated Creat Clear 121.80 Estimated GFR 122 ml/min Glucose 89 (60-115) mg/dL Calcium 9.2 (8.4-10.6) mg/dL Total Bilirubin (0.1-1.5) mg/dL AST (12-35) U/L ALT (4-50) U/L Alkaline Phosphatase (40-150) U/L Total Creatine Kinase 514 H (54-186) U/L Total Protein (6.0-8.3) g/dL Albumin (3.3-5.0) g/dL TSH 0.884 (0.270-4.200) uIU/mL Salicylates (1.0-10) mg/dL Urine Opiates Screen (Negative) Ur Buprenorphine Scrn (Negative) Ur Oxycodone Screen (Negative) Urine Methadone Screen (Negative) Acetaminophen (10.0-30.0) ug/mL Ur Barbiturates Screen (Negative) U Tricyclic Antidepress (Negative) Ur Phencyclidine Scrn (Negative) Ur Amphetamines Screen (Negative) U Methamphetamines Scrn (Negative) U Benzodiazepines Scrn (Negative) Urine Cocaine Screen (Negative) U Marijuana (THC) Screen (Negative) Ur Drug Screen Comment Ethyl Alcohol (0.01-0.03) % SARS-CoV-2 (PCR) (Negative) SARS-CoV-2 Ag (Rapid) Cancelled <Dileep Marrero MD - Last Filed: 07/11/25 21:20> Lab Results 07/11/25 07/11/25 07/11/25 Range/Units 14:15 14:15 14:20 WBC (4.50-11.00) K/uL RBC (4.30-5.90) m/uL Hgb (13.5-17.5) gm/dL Hct (37.0-53.0) % MCV (80-100) fL MCH (26-34) pg MCHC (32-36) gm/dL RDW Coeff of Naila (11.5-15.5) % Plt Count (140-440) K/uL Neut % (Auto) (42.0-72.0) % Lymph % (Auto) (20-44) % [place] % (Auto) (0.0-11.0) % Eos % (Auto) (0.0-7.0) % Baso % (Auto) (0.0-3.0) % Neut # (Auto) (1.7-7.0) K/uL Lymph # (Auto) (0.90-2.90) K/uL [place] # (Auto) (0.00-0.90) K/UL Eos # (Auto) (0.00-0.50) K/uL Baso # (Auto) (0.00-0.30) K/uL Abs Immat Gran (auto) (0.00-0.30) K/uL Imm/Tot Granulo (auto) % VBG pH (7.32-7.43) VBG pCO2 (40-50) mmHG VBG pO2 (25-47) mmHG VBG HCO3 (21-28) mmol/L Sodium 140 (135-149) mmol/L Potassium 2.8 L* (3.6-5.1) mmol/L Chloride 102 (96-114) mmol/L Carbon Dioxide 16 L (20-32) mmol/L Anion Gap 22 H (7-15) mEq/L BUN 24 (5-24) mg/dL Creatinine 1.2 (0.5-1.5) mg/dL Estimated Creat Clear 91.35 Estimated GFR 87 ml/min Glucose 179 H (60-115) mg/dL Calcium 9.9 (8.4-10.6) mg/dL Total Bilirubin 0.9 (0.1-1.5) mg/dL AST 49 H (12-35) U/L ALT 27 (4-50) U/L Alkaline Phosphatase 41 (40-150) U/L Total Creatine Kinase 344 H Cancelled (54-186) U/L Total Protein 8.4 H (6.0-8.3) g/dL Albumin 5.3 H (3.3-5.0) g/dL TSH (0.270-4.200) uIU/mL Salicylates < 1.0 L (1.0-10) mg/dL Urine Opiates Screen Negative (Negative) Ur Buprenorphine Scrn Negative (Negative) Ur Oxycodone Screen Negative (Negative) Urine Methadone Screen Negative (Negative) Acetaminophen < 10.0 (10.0-30.0) ug/mL Ur Barbiturates Screen Negative (Negative) U Tricyclic Antidepress Negative (Negative) Ur Phencyclidine Scrn Negative (Negative) Ur Amphetamines Screen Negative (Negative) U Methamphetamines Scrn Negative (Negative) U Benzodiazepines Scrn Negative (Negative) Urine Cocaine Screen Negative (Negative) U Marijuana (THC) Screen Negative (Negative) Ur Drug Screen Comment See Note Ethyl Alcohol < 0.01 (0.01-0.03) % SARS-CoV-2 (PCR) Negative SARS-CoV-2 (Negative) SARS-CoV-2 Ag (Rapid) 07/11/25 07/11/25 Range/Units 14:21 17:23 WBC 9.33 (4.50-11.00) K/uL RBC 4.37 (4.30-5.90) m/uL Hgb 13.3 L (13.5-17.5) gm/dL Hct 39.1 (37.0-53.0) % MCV 90 (80-100) fL MCH 30 (26-34) pg MCHC 34 (32-36) gm/dL RDW Coeff of Naila 11.7 (11.5-15.5) % Plt Count 255 (140-440) K/uL Neut % (Auto) 60.1 (42.0-72.0) % Lymph % (Auto) 29.0 (20-44) % [place] % (Auto) 8.0 (0.0-11.0) % Eos % (Auto) 1.6 (0.0-7.0) % Baso % (Auto) 0.4 (0.0-3.0) % Neut # (Auto) 5.60 (1.7-7.0) K/uL Lymph # (Auto) 2.71 (0.90-2.90) K/uL [place] # (Auto) 0.70 (0.00-0.90) K/UL Eos # (Auto) 0.15 (0.00-0.50) K/uL Baso # (Auto) 0.04 (0.00-0.30) K/uL Abs Immat Gran (auto) 0.08 (0.00-0.30) K/uL Imm/Tot Granulo (auto) 0.9 % VBG pH 7.409 (7.32-7.43) VBG pCO2 38 L (40-50) mmHG VBG pO2 39.6 (25-47) mmHG VBG HCO3 24 (21-28) mmol/L Sodium 138 (135-149) mmol/L Potassium 3.9 (3.6-5.1) mmol/L Chloride 106 (96-114) mmol/L Carbon Dioxide 24 (20-32) mmol/L Anion Gap 8 (7-15) mEq/L BUN 21 (5-24) mg/dL Creatinine 0.9 (0.5-1.5) mg/dL Estimated Creat Clear 121.80 Estimated GFR 122 ml/min Glucose 89 (60-115) mg/dL Calcium 9.2 (8.4-10.6) mg/dL Total Bilirubin (0.1-1.5) mg/dL AST (12-35) U/L ALT (4-50) U/L Alkaline Phosphatase (40-150) U/L Total Creatine Kinase 514 H (54-186) U/L Total Protein (6.0-8.3) g/dL Albumin (3.3-5.0) g/dL TSH 0.884 (0.270-4.200) uIU/mL Salicylates (1.0-10) mg/dL Urine Opiates Screen (Negative) Ur Buprenorphine Scrn (Negative) Ur Oxycodone Screen (Negative) Urine Methadone Screen (Negative) Acetaminophen (10.0-30.0) ug/mL Ur Barbiturates Screen (Negative) U Tricyclic Antidepress (Negative) Ur Phencyclidine Scrn (Negative) Ur Amphetamines Screen (Negative) U Methamphetamines Scrn (Negative) U Benzodiazepines Scrn (Negative) Urine Cocaine Screen (Negative) U Marijuana (THC) Screen (Negative) Ur Drug Screen Comment Ethyl Alcohol (0.01-0.03) % SARS-CoV-2 (PCR) (Negative) SARS-CoV-2 Ag (Rapid) Cancelled <Derick Medrano MD - Last Filed: 07/13/25 17:03> Imaging Data CT scan - head: Attestation: I have reviewed the pertinent imaging results. <Dileep Marrero MD - Last Filed: 07/11/25 21:20> Radiologist's impression: Impression: 1. No acute intracranial abnormality. 2. Partially empty sella. This is nonspecific and can represent a normal variant, but can also be seen in the setting of idiopathic intracranial hypertension. <Dileep Marrero MD - Last Filed: 07/11/25 21:20> ECG Data Attestation: I personally reviewed and interpreted this ECG as follows: <Dileep Marrero MD - Last Filed: 07/11/25 21:20> Interpretation: Sinus tachycardia Rate 118 AR interval 140 Normal QRS axis. No ST segment elevation or depression. QTC 432, QTC 479 <Dileep Marrero MD - Last Filed: 07/11/25 21:20> Discharge Plan Discharge Clinical Impression: Acute psychosis, Agitation, Acute hypokalemia <Dileep Marrero MD - Last Filed: 07/11/25 21:20> Patient Disposition: Home w/ Parent or Adult <Dileep Marrero MD - Last Filed: 07/11/25 21:20> Condition: Stable <Dileep Marrero MD - Last Filed: 07/11/25 21:20> Instructions: Brief Psychotic Disorder (ED) <Dileep Marrero MD - Last Filed: 07/11/25 21:20> Additional Instructions: As we discussed, at this point we do not know what caused your symptoms yesterday. It is very important for you to follow-up for further evaluation and treatment. You can follow-up with your doctors at the [facility] ([facility]) and with the psychiatrist Sylvester Coronado. We have been able to arrange an appointment with you to see Sylvester Coronado in his clinic on Thursday 07/19 at 1:00 p.m.. Remember, you can come back to the ER any time if you need help. Please return to the ER right away if you have confusion, hallucinations, thoughts of self-harm, or if you have any other concern. <Dileep Marrero MD - Last Filed: 07/11/25 21:20> Prescriptions: No Action fluoxetine hormone replacement <Dileep Marrero MD - Last Filed: 07/11/25 21:20> Follow Up/Referrals: Provider,Not a Local [Primary Care Provider, Family Practice] <Dileep Marrero MD - Last Filed: 07/11/25 21:20> Stand Alone Forms: Booster Info Instructions <Dileep Marrero MD - Last Filed: 07/11/25 21:20> Procedures ABG Interpretation ABG Results: 07/11/25 17:23 VBG pH 7.409 VBG pCO2 38 L VBG pO2 39.6 VBG HCO3 24 <Dileep Marrero MD - Last Filed: 07/11/25 21:20> 07/11/25 17:23 VBG pH 7.409 VBG pCO2 38 L VBG pO2 39.6 VBG HCO3 24 <Derick Medrano MD - Last Filed: 07/13/25 17:03>
--- NOTE | 2025-07-11 15:17 | CRLHL7_ITS ---
For Patients: As a result of the Century Cures Act, medical imaging exams and procedure reports are released immediately into your electronic medical record. You may view this report before your referring provider. If you have questions, please contact your health care provider. Indication: Altered mental status. Technique: CT of the head without contrast. Coronal and sagittal reformats. Bone and soft tissue windows. Comparison: No prior studies available for comparison at this institution. Findings: No acute intracranial hemorrhage or extra-axial collection. No evidence of acute cortical infarction. No mass effect or midline shift. Normal cerebral volume. The ventricles are normal in size, shape and contour. There is normal hernandez and white matter differentiation. Partially empty sella. The orbital contents are normal. No calvarial fractures. No lytic or sclerotic osseous lesions within the calvarium or skull base. Scalp and other imaged soft tissue structures are normal. Mastoid air cells are clear. Paranasal sinuses are well aerated. Impression: 1. No acute intracranial abnormality. 2. Partially empty sella. This is nonspecific and can represent a normal variant, but can also be seen in the setting of idiopathic intracranial hypertension. Please note that all CT scans at this facility use dose modulation, iterative reconstruction, and/or weight-based dosing when appropriate to reduce radiation dose to as low as reasonably achievable. Dictated by Derick Gomez MD @ 07/11/2025 3:49:54 PM (Electronically Signed)
[2025-07-11] MEDS: POTASSIUM CHLORIDE 10 MEQ/100 ML PIGGYBACK 100 MEQ IVPB (15:43)
[2025-07-11 15:53] LABS: TSH With Reflex to FT4* 0.884 uIU/mL (0.270-4.200)
[2025-07-11] MEDS: POTASSIUM BICARB 25 MEQ EFFERVESCENT TAB 50 MEQ PO (16:10)
[2025-07-11] MEDS: LACTATED RINGERS 1000 ML 1,000 ML IV (16:21)
[2025-07-11] MEDS: MAGNESIUM IV 2 GM/50 ML PIGGYBACK IVPB (16:54)
[2025-07-11 17:01] LABS: SARS PCR* Negative SARS-CoV-2 (Negative)
[2025-07-11] MEDS: ONDANSETRON 2 MG/ML inj 4 MG IVP (17:17)
[2025-07-11 17:29] LABS: HCO3 VBG 24 mmol/L (21-28); PCO2 VBG 38 mmHG (40-50); PO2 VBG 39.6 mmHG (25-47); pH VBG 7.409 (7.32-7.43)
[2025-07-11 17:49] LABS: Chloride* 106 mmol/L (96-114); Sodium* 138 mmol/L (135-149)
[2025-07-11 17:50] LABS: Potassium* 3.9 mmol/L (3.6-5.1)
[2025-07-11 17:52] LABS: Anion Gap 8 mEq/L (7-15); Blood Urea Nitrogen* 21 mg/dL (5-24); Carbon Dioxide* 24 mmol/L (20-32); Creatine Kinase* 514 U/L (54-186); Creatinine* 0.9 mg/dL (0.5-1.5); Est. Creatinine Clearance* 121.80; Estimated Glomerular Filt Rate 122 ml/min
[2025-07-11 17:53] LABS: Calcium* 9.2 mg/dL (8.4-10.6); Glucose* 89 mg/dL (60-115)
[2025-07-11 18:43] LABS: Creatine Kinase* 344 U/L (54-186)
[2025-07-11] MEDS: OLANZapine 5 MG/ML inj 10 MG IM (19:57)
[2025-07-12] VITALS (64 sets, daily range): BP systolic 116; BP diastolic 76; PULSE 54–205; RESP 18; O2SAT 87–100
--- NOTE | 2025-07-12 12:05 | ED_ITS ---
HPI - General Adult General Date Seen: 07/12/25 Chief complaint: Psychiatric Problem/Disorder Stated complaint: Mental Health Issue Time Seen by Provider: 07/11/25 14:02 History of Present Illness HPI narrative: ER progress note. Dr. Marrero assumed care of this patient at 10:00 a.m. this morning. Had been sleeping all night long. Patient was restless sleeping with a pulse ox on her finger. Sats 100%. By about noon when I recheck the patient she was arousable and conversant. Still seemed a little confused but more lucid than yesterday. Patient was able to agree that she wanted order some lunch. The patient's mother has been waiting in the lobby and I when out to inform her that the patient was awake. We will bring them together so they can meet. [facility] Related Data Home Medications ?Medication ?Instructions ?Recorded ?Confirmed fluoxetine 07/11/25 hormone replacement 07/11/25 Allergies Allergy/AdvReac Type Severity Reaction Status Date / Time No Known Drug Allergies Allergy Verified 07/11/25 14:33 PFSH PFSH Social History Smoking Status: Never smoker How often do you have a drink containing alcohol: never AUDIT-C Alcohol total score: 0 Non-prescribed substance use: marijuana (any form) Exam Const: Vital Signs, click to edit/add: Vital Signs - 24 hr 07/11/25 15:25 07/11/25 15:36 07/11/25 15:45 Pulse Rate 105 H 108 H 116 H Respiratory Rate 19 27 H 14 Blood Pressure 101/71 Pulse Oximetry 100 100 100 Oxygen Delivery Me thod Nasal Cannula Nasal Cannula Nasal Cannula Oxygen Flow Rate 2 2 2 07/11/25 15:46 07/11/25 16:00 07/11/25 16:02 Pulse Rate 115 H 125 H 120 H Respiratory Rate 15 27 H 24 Blood Pressure 140/99 H 147/108 H Pulse Oximetry 100 100 Oxygen Delivery Me thod Nasal Cannula Nasal Cannula Nasal Cannula Oxygen Flow Rate 2 2 2 07/11/25 16:15 07/11/25 16:16 07/11/25 16:17 Pulse Rate 104 H 101 H 110 H Respiratory Rate 14 7 L 11 L Blood Pressure 133/123 H Pulse Oximetry 100 100 100 Oxygen Delivery Me thod Nasal Cannula Nasal Cannula Room Air Oxygen Flow Rate 2 2 07/11/25 16:30 07/11/25 16:31 07/11/25 16:32 Pulse Rate 100 105 H 107 H Respiratory Rate 8 L 16 16 Blood Pressure 134/105 H Pulse Oximetry 93 100 100 Oxygen Delivery Me thod Room Air Room Air Oxygen Flow Rate 07/11/25 16:45 07/11/25 16:46 07/11/25 17:00 Pulse Rate 112 H 102 H 119 H Respiratory Rate 33 H 14 11 L Blood Pressure 132/111 H Pulse Oximetry 92 100 100 Oxygen Delivery Me thod Oxygen Flow Rate 07/11/25 17:01 07/11/25 17:15 07/11/25 17:16 Pulse Rate 119 H 112 H 109 H Respiratory Rate 11 L 32 H 11 L Blood Pressure 130/92 H 120/85 Pulse Oximetry 93 90 97 Oxygen Delivery Me thod Oxygen Flow Rate 07/11/25 17:30 07/11/25 17:31 07/11/25 17:32 Pulse Rate 101 H 98 108 H Respiratory Rate 19 19 19 Blood Pressure 127/96 H Pulse Oximetry 97 98 Oxygen Delivery Me thod Oxygen Flow Rate 07/11/25 17:45 07/11/25 17:47 07/11/25 18:00 Pulse Rate 120 H 118 H 105 H Respiratory Rate 14 19 17 Blood Pressure 143/81 H Pulse Oximetry 100 100 99 Oxygen Delivery Me thod Oxygen Flow Rate 07/11/25 18:01 07/11/25 18:15 07/11/25 18:16 Pulse Rate 107 H 121 H 120 H Respiratory Rate 11 L 10 L 12 Blood Pressure 125/82 130/87 Pulse Oximetry 99 97 Oxygen Delivery Me thod Oxygen Flow Rate 07/11/25 18:30 07/11/25 18:31 07/11/25 21:23 Pulse Rate 111 H 122 H 77 Respiratory Rate 9 L 16 Blood Pressure 136/90 H Pulse Oximetry 100 100 96 Oxygen Delivery Me thod Oxygen Flow Rate 07/11/25 21:30 07/11/25 21:45 07/11/25 22:00 Pulse Rate 76 79 89 Respiratory Rate Blood Pressure Pulse Oximetry 96 96 96 Oxygen Delivery Me thod Oxygen Flow Rate 07/11/25 22:15 07/11/25 22:30 07/11/25 22:45 Pulse Rate 73 64 66 Respiratory Rate Blood Pressure Pulse Oximetry 96 96 96 Oxygen Delivery Me thod Oxygen Flow Rate 07/11/25 23:00 07/11/25 23:15 07/11/25 23:30 Pulse Rate 70 74 76 Respiratory Rate Blood Pressure Pulse Oximetry 96 96 96 Oxygen Delivery Me thod Oxygen Flow Rate 07/11/25 23:45 07/12/25 00:00 07/12/25 00:15 Pulse Rate 58 L 69 66 Respiratory Rate Blood Pressure Pulse Oximetry 99 97 97 Oxygen Delivery Me thod Oxygen Flow Rate 07/12/25 00:30 07/12/25 00:45 07/12/25 01:00 Pulse Rate 68 82 96 Respiratory Rate Blood Pressure Pulse Oximetry 97 98 96 Oxygen Delivery Me thod Oxygen Flow Rate 07/12/25 01:15 07/12/25 01:30 07/12/25 01:45 Pulse Rate 80 71 67 Respiratory Rate Blood Pressure Pulse Oximetry 97 96 96 Oxygen Delivery Me thod Oxygen Flow Rate 07/12/25 02:00 07/12/25 02:15 07/12/25 02:30 Pulse Rate 68 67 76 Respiratory Rate Blood Pressure Pulse Oximetry 97 95 96 Oxygen Delivery Me thod Oxygen Flow Rate 07/12/25 02:45 07/12/25 03:00 07/12/25 03:15 Pulse Rate 64 70 67 Respiratory Rate Blood Pressure Pulse Oximetry 95 96 99 Oxygen Delivery Me thod Oxygen Flow Rate 07/12/25 03:30 07/12/25 03:45 07/12/25 04:00 Pulse Rate 78 59 L 59 L Respiratory Rate Blood Pressure Pulse Oximetry 95 97 97 Oxygen Delivery Me thod Oxygen Flow Rate 07/12/25 04:15 07/12/25 04:30 07/12/25 04:46 Pulse Rate 61 59 L 77 Respiratory Rate Blood Pressure Pulse Oximetry 98 98 99 Oxygen Delivery Me thod Oxygen Flow Rate 07/12/25 05:00 07/12/25 05:15 07/12/25 05:30 Pulse Rate 69 56 L 60 Respiratory Rate Blood Pressure Pulse Oximetry 98 99 99 Oxygen Delivery Me thod Oxygen Flow Rate 07/12/25 05:45 07/12/25 06:00 07/12/25 06:15 Pulse Rate 58 L 62 54 L Respiratory Rate Blood Pressure Pulse Oximetry 99 99 87 L Oxygen Delivery Me thod Oxygen Flow Rate 07/12/25 06:30 07/12/25 06:45 07/12/25 07:00 Pulse Rate 73 58 L 58 L Respiratory Rate Blood Pressure Pulse Oximetry 92 98 98 Oxygen Delivery Me thod Oxygen Flow Rate 07/12/25 07:15 07/12/25 07:30 07/12/25 07:45 Pulse Rate 64 56 L 62 Respiratory Rate Blood Pressure Pulse Oximetry 99 100 100 Oxygen Delivery Me thod Oxygen Flow Rate 07/12/25 08:00 07/12/25 08:15 07/12/25 08:30 Pulse Rate 80 67 69 Respiratory Rate Blood Pressure Pulse Oximetry 99 99 99 Oxygen Delivery Me thod Oxygen Flow Rate 07/12/25 08:45 07/12/25 09:00 07/12/25 09:15 Pulse Rate 59 L 65 72 Respiratory Rate Blood Pressure Pulse Oximetry 100 99 99 Oxygen Delivery Me thod Oxygen Flow Rate 07/12/25 09:30 07/12/25 09:45 07/12/25 10:00 Pulse Rate 60 62 82 Respiratory Rate Blood Pressure Pulse Oximetry 100 99 100 Oxygen Delivery Me thod Oxygen Flow Rate 07/12/25 10:15 07/12/25 10:30 Pulse Rate 92 81 Respiratory Rate Blood Pressure Pulse Oximetry 97 98 Oxygen Delivery Me thod Oxygen Flow Rate Course Course ED Course: Recheck-patient sleeping but arousable at 11:55 a.m.. Much more calm and conversant today than yesterday. Patient drink some water and ate some lunch. Doing well. Patient's family (mother, then girlfriend, then also father) came to the bedside. I had a long discussion with the patient and his family. At this point the patient is still in a stressful medical providers, but is clearly not agitated, violent, psychotic. Patient is conversant and oriented. Patient seems to be future oriented with thinking. Patient is not suicidal. Patient is not having any hallucinations. No apparent delusional thinking. Patient was seen by [facility]. They feel that the patient is safe to discharge. I had a discussion with the patient and his family. At this point his agitation and apparent paranoia and psychosis is clearly resolved compared to yesterday. He no longer meets criteria for 72 hour hold. I informed the patient that he is free to go at any time. However, I still have concern about his mental health. It is unclear what actually caused the patient's symptoms yesterday. Does not appear to have been a drug-induced psychosis based on negative drug screen. However, set and exhibit designer drugs may give symptoms without being detectable on our labs. Concern here would be for some other psychosis or perhaps 1st onset of schizophrenia. I offered the patient to consider at voluntary inpatient mental health admission. I think his family would prefer her to go inpatient. However the patient does not want to go inpatient. They did request to be seen by social Work. Social Work did come here to the ER to see the patient. They agree that she is appropriate for outpatient management if that is what she wants. We were able to set up an appointment for this patient to be seen in 1 week by Sylvester nicole. Patient and family are agreeable to this plan. Vital Signs Vital signs: Initial Vital Signs Pulse Rate 137 H 07/11/25 14:07 Respiratory Rate 23 07/11/25 14:07 Blood Pressure 160/84 H 07/11/25 14:07 Blood Pressure Mean 109 H 07/11/25 14:07 Blood Pressure Position Semi-Fowlers 07/11/25 14:07 Pulse Oximetry 93 07/11/25 14:07 Vital Signs Pulse Rate 137 H 07/11/25 14:07 Respiratory Rate 23 07/11/25 14:07 Blood Pressure 160/84 H 07/11/25 14:07 Pulse Oximetry 93 07/11/25 14:07 Temperature 98.0 F 07/11/25 14:26 Pulse Rate 81 07/12/25 10:30 Respiratory Rate 16 07/11/25 18:31 Blood Pressure 136/90 H 07/11/25 18:30 Pulse Oximetry 98 07/12/25 10:30 Oxygen Delivery Method Room Air 07/11/25 16:31 Oxygen Flow Rate 2 07/11/25 16:16 Medications Administered Medications: Discontinued Medications Generic Name Dose Route Start Last Admin Trade Name Freq PRN Reason Stop Dose Admin Sodium Chloride 1,000 mls @ 1,000 mls/hr 07/11/25 14:30 07/11/25 15:10 0.9 % Sodium Chloride 1000 Ml IV 07/11/25 15:29 Infused .Q1H JUANJOSE Infusion Potassium Chloride 10 meq in 100 mls @ 100 mls/hr 07/11/25 15:17 07/11/25 17:00 Potassium Chloride IVPB 07/11/25 16:16 Infused ONCE ONE Infusion Magnesium Sulfate 2 gm in 50 mls @ 25 mls/hr 07/11/25 15:17 07/11/25 18:55 Magnesium Iv IVPB 07/11/25 17:16 Infused ONCE ONE Infusion Lactated Ringer's 1,000 mls @ 1,000 mls/hr 07/11/25 16:09 07/11/25 17:15 Lactated Ringers 1000 Ml IV 07/11/25 17:08 Infused .Q1H ONE Infusion Ketamine HCl 400 mg 07/11/25 14:20 07/11/25 13:58 Ketamine Hcl 100 Mg/Ml Inj IM 07/11/25 14:21 400 mg ONCE ONE Administration Olanzapine 10 mg 07/11/25 14:48 07/11/25 19:57 Olanzapine 5 Mg/Ml Inj IM 07/11/25 14:49 10 mg ONCE ONE Administration Olanzapine 10 mg 07/11/25 15:57 07/11/25 18:45 Olanzapine 5 Mg Tab.Rapdis PO 07/11/25 15:58 10 mg ONCE ONE Administration Ondansetron HCl 4 mg 07/11/25 17:10 07/11/25 17:17 Ondansetron 2 Mg/Ml Inj IVP 07/11/25 17:11 4 mg ONCE ONE Administration Potassium Bicarbonate 50 meq 07/11/25 16:03 07/11/25 16:10 Potassium Bicarb 25 Meq Effervescent Tab PO 07/11/25 16:04 50 meq ONCE ONE Administration Medical Decision Making Lab Data Labs: Lab Results 07/11/25 07/11/25 07/11/25 Range/Units 14:15 14:15 14:20 WBC (4.50-11.00) K/uL RBC (4.30-5.90) m/uL Hgb (13.5-17.5) gm/dL Hct (37.0-53.0) % MCV (80-100) fL MCH (26-34) pg MCHC (32-36) gm/dL RDW Coeff of Naila (11.5-15.5) % Plt Count (140-440) K/uL Neut % (Auto) (42.0-72.0) % Lymph % (Auto) (20-44) % [place] % (Auto) (0.0-11.0) % Eos % (Auto) (0.0-7.0) % Baso % (Auto) (0.0-3.0) % Neut # (Auto) (1.7-7.0) K/uL Lymph # (Auto) (0.90-2.90) K/uL [place] # (Auto) (0.00-0.90) K/UL Eos # (Auto) (0.00-0.50) K/uL Baso # (Auto) (0.00-0.30) K/uL Abs Immat Gran (auto) (0.00-0.30) K/uL Imm/Tot Granulo (auto) % VBG pH (7.32-7.43) VBG pCO2 (40-50) mmHG VBG pO2 (25-47) mmHG VBG HCO3 (21-28) mmol/L Sodium 140 (135-149) mmol/L Potassium 2.8 L* (3.6-5.1) mmol/L Chloride 102 (96-114) mmol/L Carbon Dioxide 16 L (20-32) mmol/L Anion Gap 22 H (7-15) mEq/L BUN 24 (5-24) mg/dL Creatinine 1.2 (0.5-1.5) mg/dL Estimated Creat Clear 91.35 Estimated GFR 87 ml/min Glucose 179 H (60-115) mg/dL Calcium 9.9 (8.4-10.6) mg/dL Total Bilirubin 0.9 (0.1-1.5) mg/dL AST 49 H (12-35) U/L ALT 27 (4-50) U/L Alkaline Phosphatase 41 (40-150) U/L Total Creatine Kinase 344 H Cancelled (54-186) U/L Total Protein 8.4 H (6.0-8.3) g/dL Albumin 5.3 H (3.3-5.0) g/dL TSH (0.270-4.200) uIU/mL Salicylates < 1.0 L (1.0-10) mg/dL Urine Opiates Screen Negative (Negative) Ur Buprenorphine Scrn Negative (Negative) Ur Oxycodone Screen Negative (Negative) Urine Methadone Screen Negative (Negative) Acetaminophen < 10.0 (10.0-30.0) ug/mL Ur Barbiturates Screen Negative (Negative) U Tricyclic Antidepress Negative (Negative) Ur Phencyclidine Scrn Negative (Negative) Ur Amphetamines Screen Negative (Negative) U Methamphetamines Scrn Negative (Negative) U Benzodiazepines Scrn Negative (Negative) Urine Cocaine Screen Negative (Negative) U Marijuana (THC) Screen Negative (Negative) Ur Drug Screen Comment See Note Ethyl Alcohol < 0.01 (0.01-0.03) % SARS-CoV-2 (PCR) Negative SARS-CoV-2 (Negative) SARS-CoV-2 Ag (Rapid) 07/11/25 07/11/25 Range/Units 14:21 17:23 WBC 9.33 (4.50-11.00) K/uL RBC 4.37 (4.30-5.90) m/uL Hgb 13.3 L (13.5-17.5) gm/dL Hct 39.1 (37.0-53.0) % MCV 90 (80-100) fL MCH 30 (26-34) pg MCHC 34 (32-36) gm/dL RDW Coeff of Naila 11.7 (11.5-15.5) % Plt Count 255 (140-440) K/uL Neut % (Auto) 60.1 (42.0-72.0) % Lymph % (Auto) 29.0 (20-44) % [place] % (Auto) 8.0 (0.0-11.0) % Eos % (Auto) 1.6 (0.0-7.0) % Baso % (Auto) 0.4 (0.0-3.0) % Neut # (Auto) 5.60 (1.7-7.0) K/uL Lymph # (Auto) 2.71 (0.90-2.90) K/uL [place] # (Auto) 0.70 (0.00-0.90) K/UL Eos # (Auto) 0.15 (0.00-0.50) K/uL Baso # (Auto) 0.04 (0.00-0.30) K/uL Abs Immat Gran (auto) 0.08 (0.00-0.30) K/uL Imm/Tot Granulo (auto) 0.9 % VBG pH 7.409 (7.32-7.43) VBG pCO2 38 L (40-50) mmHG VBG pO2 39.6 (25-47) mmHG VBG HCO3 24 (21-28) mmol/L Sodium 138 (135-149) mmol/L Potassium 3.9 (3.6-5.1) mmol/L Chloride 106 (96-114) mmol/L Carbon Dioxide 24 (20-32) mmol/L Anion Gap 8 (7-15) mEq/L BUN 21 (5-24) mg/dL Creatinine 0.9 (0.5-1.5) mg/dL Estimated Creat Clear 121.80 Estimated GFR 122 ml/min Glucose 89 (60-115) mg/dL Calcium 9.2 (8.4-10.6) mg/dL Total Bilirubin (0.1-1.5) mg/dL AST (12-35) U/L ALT (4-50) U/L Alkaline Phosphatase (40-150) U/L Total Creatine Kinase 514 H (54-186) U/L Total Protein (6.0-8.3) g/dL Albumin (3.3-5.0) g/dL TSH 0.884 (0.270-4.200) uIU/mL Salicylates (1.0-10) mg/dL Urine Opiates Screen (Negative) Ur Buprenorphine Scrn (Negative) Ur Oxycodone Screen (Negative) Urine Methadone Screen (Negative) Acetaminophen (10.0-30.0) ug/mL Ur Barbiturates Screen (Negative) U Tricyclic Antidepress (Negative) Ur Phencyclidine Scrn (Negative) Ur Amphetamines Screen (Negative) U Methamphetamines Scrn (Negative) U Benzodiazepines Scrn (Negative) Urine Cocaine Screen (Negative) U Marijuana (THC) Screen (Negative) Ur Drug Screen Comment Ethyl Alcohol (0.01-0.03) % SARS-CoV-2 (PCR) (Negative) SARS-CoV-2 Ag (Rapid) Cancelled Discharge Plan Discharge Clinical Impression: Acute psychosis, Agitation, Acute hypokalemia Patient Disposition: Home w/ Parent or Adult Condition: Stable Instructions: Brief Psychotic Disorder (ED) Additional Instructions: As we discussed, at this point we do not know what caused your symptoms yesterday. It is very important for you to follow-up for further evaluation and treatment. You can follow-up with your doctors at the [facility] ([facility]) and with the psychiatrist Sylvester Nicole. We have been able to arrange an appointment with you to see Sylvester Nicole in his clinic on Thursday 07/19 at 1:00 p.m.. Remember, you can come back to the ER any time if you need help. Please return to the ER right away if you have confusion, hallucinations, thoughts of self- harm, or if you have any other concern. Prescriptions: No Action fluoxetine hormone replacement Follow Up/Referrals: Provider,Not a Local [Primary Care Provider, Family Practice] Stand Alone Forms: [employer] Info Instructions Procedures ABG Interpretation ABG Results: 07/11/25 17:23 VBG pH 7.409 VBG pCO2 38 L VBG pO2 39.6 VBG HCO3 24
--- NOTE | 2025-07-12 16:00 | PC.SOCIAL ---
Operations Planner Consult: SW met with patient and parents. Patient was sleeping when SW arrived, but awoke and listened while SW spoke. Parents had questions about different levels of care. SW discussed inpatient vs outpatient individual and group therapy. SW provided them with information about [facility] health resources and therapy agencies in [place]. Patient states that they don't feel a close connection with their psychiatric provider and would be open to meeting with a different one. SW discussed Sylvester Coronado with provider present and patient was agreeable to this. When discussing different outpatient care, patient states that she doesn't particularly enjoy individual therapy. SW suggested attending group therapy or trying both at the same time to see if that supports patient better. SW discussed that finding a therapist is more of a personal experience as patient's should read bio's to determine if the therapist seems to be a good fit right away. Parents had no additional questions at this time. SW met with patient privately who states that they are doing okay. They discussed stress with not having financial income, but she and her girlfriend are working on getting jobs. Patient mentioned she has been trying to connect with people for more support. SW asked if she could provide resources via handouts or email and patient was agreeable. SW to provide information for [facility]. SW also discussed [facility] as an option for more supportive intentional healthcare for patient. SW to email these to patient. Patient denied SI and SIB and states they weren't trying to harm themselves at all, they just needed to get out of the apartment. Patient reports that she feels safe with girlfriend, however, feels as though girlfriend doesn't like how busy she likes to be. Patient states overall safety in the apartment but doesn't feel comfortable there and they are thinking of moving. SW provided card for patient if other concerns arise.
--- NOTE | 2025-07-13 15:23 | PC.SOCIAL ---
Heavy Equipment Operator Apprentice Consult: SW received a voicemail from patient's step-mom who states that Sylvester Coronado does not provide gender-affirming services so they will not be following up with him and that she wanted [facility] to be aware of this. BELINDA called Kailey back and left a voicemail with information about a provider/organization ([facility]) that does have gender-affirming providers for psych/med management. SW sent information to patient about more resource connections to the LGBTQIA community for supports.
== END 2025-07-12 15:56 | disposition home or self-care (01) ==
PROVIDERS: Emergency Provider Emergency Medicine
DX: F23 Brief psychotic disorder (principal); R45.1 Restlessness and agitation; E87.6 Hypokalemia
CPT/HCPCS: 36415; 70450; 80048; 80053; 80143; 80179; 80306; 82077; 82550; 82803; 84443; 85025; 87426; 87635; 93005; 96365; 96368; 96372; 99284; 99285; Q3014; A9270; J2405; J3475; J3480; J3490; J7030; J7120

== ENCOUNTER 2025-08-05 01:36 | Observation (INO) | payer BC, SELFPAY ==
[2025-08-05] VITALS (176 sets, daily range): BP systolic 84–124; BP diastolic 42–102; PULSE 47–157; RESP 0–37; TEMP 36.1–37.1; O2SAT 87–100; BMI 19.9
--- OUTSIDE RECORDS SUMMARY | 2025-08-05 01:39 | XMS_ITS | Clinical Summary ---
Author Organization [facility] Address [address] [place] [address] Care Team Providers Care Client Development Consultant Name Role Phone Cordelia Birmingham MD Primary Care Provider [phone] Allergies Active Allergy Reactions Criticality Noted Date [...] mouth once daily. 0 09/11/20 21 Active spironolactone (ALDACTONE) 50 mg tabletIndications :Gender 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 Take 1 Tablet (50 mg) by mouth two times daily. 180 Tablet 5 4:18 PM CDT 06/15/20 25 Active Safety Yeoman (BD Eclipse) 25 gauge x 1 ndleIndications:G [...] As directed. 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 180 Tablet 07/21/20 25 025 Active methylphenidate HCl (Ritalin LA) 10 mg SR capsuleIndication s:ADHD (attention deficit hyperactivity disorder), inattentive type Take 1 Capsule (10 mg) by mouth once daily. 30 Capsule 03/19/20 25 025 Discontin ued(*Stacie ent states no longer taking) FLUoxetine (PROZAC) 20 mg capsuleIndication s:Mild episode of recurrent major depressive disorder Take 1 Capsule (20 mg) by mouth once daily. 90 Capsule 5 4:18 PM CDT 06/15/20 25 025 Discontin ued(*Stacie ent states no longer taking) estradiol valerate (DELESTROGEN) 10 mg/mL intramuscular oilIndications:Ge nder 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 Inject 5 mg intramuscular once weekly. 5 mL 06/22/20 025 Discontin ued(*Med complete/ Regimen complete/ Level of care change) Active Problems Problem Noted Date Diagnosed Date Controlled substance agreement signed 01/22/2022 Overview (01/22/2022): Signed 01/22/2022 Haley Gonzales DNP, DIRECTOR CORPORATE COMPLIANCE, SENIOR TRAINER/NFLD Psychairty Anxiety and depression 05/29/2021 Moderate recurrent major depression Attention deficit hyperactivity disorder (ADHD) Gender dysphoria Encounters Date Type Department Care Team Description 08/02/2025 1:00 PM CDT Office Visit [facility] [address] [place] [address] Haley Gonzales NP Failed Appointment 07/21/2025 2:50 PM CDT Office Visit [facility] [address] [place] [address] Cordelia Birmingham MD ER Follow up ([place]) 07/21/2025 Travel 07/21/2025 Telephone [facility] [address] [place] [address] Cordelia Birmingham MD Appointment 07/16/2025 Telephone [facility] [address] [place] [address] Cordelia Birmingham MD Appointment 07/16/2025 Telephone [facility] [address] [place] [address] Billie Grace [facility] Questions 07/14/2025 3:30 PM CDT Telemedicine [facility] [address] [place] [address] Bilile Grace, [facility] Visit; Telehealth 07/11/2025 Orders Only [facility] Scanner 1 scan: (1-Ord) 07/11/2025 07/11/2025 Orders Only [facility] Scanner 1 scan: (1-Ord) [facility], CT HEAD/BRAIN WO CON, 07/11/2025 07/11/2025 Orders Only [facility] Scanner 1 scan: (1-Ord) [facility], MULTIPLE LABS, 07/11/2025 06/28/2025 2:00 PM CDT Education [facility] [address] [place] [address] Education (Estradiol IM injection teaching) 06/28/2025 Travel 06/25/2025 Telephone [facility] [address] [place] [address] Cordelia Birmingham MD Prior Authorization (estradiol valerate (DELESTROGEN) 10 mg/mL intramuscular oil APPROVED June 25, 2025 - 11/24/2222) 06/23/2025 Telephone [facility] [address] [place] [address] Cordelia Birmingham MD Pharmacist Medication Management (Syringe (Disposable) 1 mL syrg//Safety Yeoman (BD Eclipse) 25 gauge x 1 ndle) 06/22/2025 Telephone [facility] [address] [place] [address] Cordelia Birmingham MD Follow Up 06/15/2025 2:50 PM CDT Office Visit [facility] [address] [place], [place] [address] Cordelia Birmingham MD Medication Management 06/15/2025 Travel 06/05/2025 Travel 05/05/2025 Refill [facility] [address] [place] [address] Cordelia Birmingham MD Refill Request (Spironolactone) from Last 3 Months Immunizations Immunization Administration Dates Next Due AMB Influenza, (Flumist) Ashley e Intranasal,LAIV4 (Flu Clinic Only) 09/29/2010,09/22/2008 COVID-19 vaccine (Pfizer-Bio NTech 30mcg/0.3mL) 12YO+ BIVALENT PF, MDV 09/14/2022 COVID-19 vaccine (Pfizer-Bio NTech 30mcg/0.3mL) PF, MDV 03/25/2021,03/03/2021 DTaP 05/07/2006, 3,2001,09/15,2001 [...] PM CDT Legal 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 [employer] Gender Identity Transgender Female 04/25/2025 9: 35 PM CDT Sexual Orientation Bisexual 09/11/2021 12 :45 PM CDT Obstetrics History Last Filed Vital Signs Vital Sign Reading Time Taken Comments Blood Pressure 131/79 07/21/2025 2:58 PM CDT Pulse 93 07/21/2025 2:58 PM CDT Temperature 36.9 C (98.5 F) 11/23/2022 2:03 PM COORDINATOR [employer] Respiratory Rate 15 02/08/2022 9:48 AM CDT Oxygen Saturation 100% 07/21/2025 2:58 PM CDT Inhaled Oxygen Concentration - - Weight 71.5 kg (157 lb 9.6 oz) 07/21/2025 2:58 P M CDT Height 176.5 cm (5' 9.5) 04/16/2023 10:40 AM CD T Body Mass Index 22.94 04/16/2023 10:40 AM CDT Plan of Treatment Upcoming Encounters Date Type Department Care Team (Late st Contact Info) Description 09/15/2025 2:00 PM CDT Office Visit [facility] [address] [place] [address] Cordelia Birmingham MD [address] [place] [address] Health Maintenance Due Date Last Done Comments [...] 21-65 04/23/2073 Postp oned from 2022 (Other) RSV vaccine for adults or (1 - 1-dose 75+ series) 2076 Pneumococcal series for age 6-49 Aged Out 05/07/2002, 02/04/2002, 2001, Additional history exists No longer eligible based on patient's age to complete this topic Hepatitis B series for 19+ Completed 10/10, 2001, 2001 HPV series for age 9-45 Completed 01/12/20 19, 10/10/2017, 07/17/2017 HPV series for age 9-45 Completed 01/12/20 19, 10/10/2017, 07/17/2017 HIV for age 15-65 Completed 04/15/2024 Hepatitis C screening for age 18-79 Completed 04/15/2024 COVID-19 vaccine series Completed 08/25/20, 09/14/2022, 03/25/2021, Additional history exists Procedures Procedure Name Priority Date/Time Associated Diagnosis Comments SCAN-ELECTROCARDIOGRA M EKG 07/11/2025 12:00 AM CDT SCAN-LABORATORY REPORT 07/11/2025 12:00 AM CDT SCAN-CT INTERPRETATION 07/11/2025 12:00 AM CDT COMP METABOLIC PANEL Routine 06/15/2025 4:00 PM CDT Gender 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 ESTRADIOL Routine 06/15/2025 4:00 PM CDT Gender 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 TESTOSTERONE,TOTAL Routine 06/15/2025 4: 00 PM CDT Gender 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 GC CHLAMYDIA TRACH PROBE Routine 04/15/2024 12:14 PM CDT Has multiple sexual partners ANTI HIV 1/2 Routine 04/15/2024 12:11 PM CDT Screening for HIV (human immunodeficiency virus) ANTI HCV Routine 04/15/2024 12:11 PM CDT Need for hepatitis C screening test from Last 3 Months or Most Recently Relevant to Health Maintenance Results * SCAN-LABORATORY REPORT (07/11/2025 12:00 AM CDT) us Scanner OTHER Final Result * SCAN-CT INTERPRETATION (07/11/2025 12:00 AM CDT) Anatomical Region Laterality Modality Other us Scanner OTHER Final Result * SCAN-ELECTROCARDIOGRAM EKG (07/11/2025 12:00 AM CDT) us Scanner OTHER Final Result * TESTOSTERONE,TOTAL (06/15/2025 4:00 PM CDT) TESTOSTERONE, TOTAL, MS 364 250 - 1,100 ng/dL [employer] Comment: Men with clinically significant hypogonadal symptoms and testosterone values repeatedly in the range of the 200-300 ng/dL or less, may benefit from testosterone treatment after adequate risk and benefits counseling. For additional information, please refer to https://education.[employer]/faq/TotalTestosteroneLCMSMS (This link is being provided for informational/educational purposes only.) (Note) This test was developed and its analytical performance characteristics have been determined by [employer]. It has not been cleared or approved by the FDA. This assay has been validated pursuant to the CLIA regulations and is used for clinical purposes. MD [facility] [address] [address],[address] [facility] [address] Carmencita Weiss MD, PhD Blood BLOOD SPECIMEN / Unknown 06/15/2025 4:00 PM CDT 06/15/2025 4:01 PM CDT Cordelia Birmingham MD CHEMISTRY Final Resul t Performing Organization Address City/[facility]/ZIP Co de Phone Number [facility] [address] [facility] [place] [address], [facility] [address], [address] [place] [address] * (ABNORMAL) ESTRADIOL (06/15/2025 4:00 PM CDT) ESTRADIOL 40(H) < OR = 39 pg/mL [facility] Comment: Reference range established on post-pubertal patient population. No pre-pubertal reference range established using this assay. For any patients for whom low Estradiol levels are anticipated (e.g. males, pre-pubertal children and hypogonadal/post-menopausal females), the [employer] [facility] Estradiol, Ultrasensitive, LCMSMS assay is recommended (order code [id number]). Please note: patients being treated with the drug fulvestrant (Faslodex(R)) have demonstrated significant interference in immunoassay methods for estradiol measurement. The cross reactivity could lead to falsely elevated estradiol test results leading to an inappropriate clinical assessment of estrogen status. [employer] order code [id number], Ultrasensitive LC/MS/MS demonstrates negligible cross reactivity with fulvestrant. Blood BLOOD SPECIMEN / Unknown 06/15/2025 4:00 PM CDT 06/15/2025 4:01 PM CDT Codrelia Birmingham MD SEND OUTS Final Resul t [employer] [facility] [address] [place] [address], [facility] [address] [place] [address] * (ABNORMAL) COMP METABOLIC PANEL (06/15/2025 4:00 PM CDT) GLUCOSE 77 65 - 99 mg/dL [facility] Comment: Fasting reference interval UREA NITROGEN (BUN) 16 7 - 25 mg/dL [facility] CREATININE 0.97 0.60 - 1.24 mg/dL [facility] EGFR 112 > OR = 60 mL/min/1. 73m2 [facility] BUN/CREATININE RATIO SEE NOTE: (calc) [facility] Comment: Not [...] 4:01 PM CDT us Cordelia Birmingham MD CHEMISTRY Final Resul t [employer] [facility] [address] [place] [address], [place] [phone] [facility] [address] [place] [address] * GC & CHLAMYDIA DNA PCR [[id number]] (04/15/2024 12:14 PM CDT) Pathologist [facility] CHLAMYDIA PROBE Negative 12:20 PM CDT [facility] N GONORRHOEAE PROBE Negative 04/16/2024 12:20 PM CDT [facility] Other URINE SPECIMEN / Unknown Non-Blood / Unknown 04/15/2024 12:14 PM CDT 04/15/2024 12:14 PM CDT Cordelia Birmingham MD MICROBIOLOGY Final Resul t Performing Organization Address [facility] Co de Phone Number [facility] [address] [place] [address], [place] * ANTI HCV (04/15/2024 12:11 PM CDT) Pathologist [facility] HEPATITIS C ANTIBODY Non-Reacti ve Non-React brianna 04/16/2024 1:17 AM CDT [facility] Comment:Please note, per www .CDC.gov: If [...] 12:11 PM CDT 04/15/2024 12:12 PM CDT Cordelia Birmingham MD SEND OUTS Final Resul t Performing Organization Address City/[facility]/ZIP Co de Phone Number [facility] [address] [place], [place] [id number], [place] * ANTI HIV 1/2 [92173.0] (04/15/2024 12:11 PM CDT) Pathologist [facility] HIV-1/HIV-2 SCREEN Non-Reacti ve Non-Reacti ve 04/16/2024 1:11 AM CDT [facility] Comment:HIV-1 p24 and HIV-1/ HIV-2 Ab Not Detected. Blood BLOOD SPECIMEN / Unknown Venipuncture / Unknown 04/15/2024 12:11 PM CDT 04/15/2024 12:12 PM CDT us Cordelia Birmingham MD SEND OUTS Final Resul t [facility] [address] [place] [address], [place] from Last 3 Months or Most Recently Relevant to Health Maintenance Insurance [facility] [place] Care Teams Client Development Consultant Relationship Specialty Start Date End Date Cordelia Birmingham MD [address] [place] [phone] PCP - General Family Practice 07/16/24
[2025-08-05] MEDS: OLANZapine 5 MG/ML inj 10 MG IM ×2 (01:55→02:15)
--- NOTE | 2025-08-05 02:29 | ED_ITS ---
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 transfer. Patient's blood pressure 130/92 pulse 75 and regular straight 17 temperature 98.1? saturations are 98% on room air. Cooperative with the nurses. Currently on a 72 hour hold. I noted the patient is hypokalemic at 3.0, is on spironolactone already. We will give the patient a couple doses of potassium, consideration of rechecking this. Potentially tomorrow. Patient declined the basic metabolic profile, hold off on the potassium at this time. He has been eating normal diet since he came in. He was started escalate, but took his evening medication of Zyprexa in seems to be doing better. I did have anything update the parents with, so I had the nurses speak to the parents. Hopefully tomorrow we can have social service assistant see him, may be re deck him consideration is a Ángel is also looking at him. <Byron Donovan MD - Last Filed: 08/08/25 18:23> Vital Signs Vital signs: Initial Vital Signs Temperature 98.8 F 08/05/25 02:14 Temperature Source Temporal Artery Scan 08/05/25 02:14 Pulse Rate 110 H 08/05/25 02:14 Respiratory Rate 20 08/05/25 02:14 Respiratory Effort Normal, Spontaneous, Non-Labored 08/05/25 02:14 Respiratory Depth Normal 08/05/25 02:14 Respiratory Pattern Normal 08/05/25 02:14 Blood Pressure 112/67 08/05/25 02:14 Blood Pressure Mean 82 08/05/25 02:14 Blood Pressure Position Supine 08/05/25 02:14 Pulse Oximetry 96 08/05/25 02:14 Oxygen Delivery Method Room Air 08/05/25 02:14 Vital Signs Temperature 98.8 F 08/05/25 02:14 Pulse Rate 110 H 08/05/25 02:14 Respiratory Rate 20 08/05/25 02:14 Blood Pressure 112/67 08/05/25 02:14 Pulse Oximetry 96 08/05/25 02:14 Oxygen Delivery Method Room Air 08/05/25 02:14 Temperature 98.5 F 08/10/25 20:55 Pulse Rate 74 08/11/25 07:00 Respiratory Rate 18 08/10/25 23:00 Blood Pressure 139/93 H 08/10/25 20:55 Pulse Oximetry 100 08/10/25 20:55 Oxygen Delivery Method Room Air 08/10/25 20:55 <Megan Peter MD - Last Filed: 08/10/25 08:31> Initial Vital Signs Temperature 98.8 F 08/05/25 02:14 Temperature Source Temporal Artery Scan 08/05/25 02:14 Pulse Rate 110 H 08/05/25 02:14 Respiratory Rate 20 08/05/25 02:14 Respiratory Effort Normal, Spontaneous, Non-Labored 08/05/25 02:14 Respiratory Depth Normal 08/05/25 02:14 Respiratory Pattern Normal 08/05/25 02:14 Blood Pressure 112/67 08/05/25 02:14 Blood Pressure Mean 82 08/05/25 02:14 Blood Pressure Position Supine 08/05/25 02:14 Pulse Oximetry 96 08/05/25 02:14 Oxygen Delivery Method Room Air 08/05/25 02:14 Vital Signs Temperature 98.8 F 08/05/25 02:14 Pulse Rate 110 H 08/05/25 02:14 Respiratory Rate 20 08/05/25 02:14 Blood Pressure 112/67 08/05/25 02:14 Pulse Oximetry 96 08/05/25 02:14 Oxygen Delivery Method Room Air 08/05/25 02:14 Temperature 98.5 F 08/10/25 20:55 Pulse Rate 74 08/11/25 07:00 Respiratory Rate 18 08/10/25 23:00 Blood Pressure 139/93 H 08/10/25 20:55 Pulse Oximetry 100 08/10/25 20:55 Oxygen Delivery Method Room Air 08/10/25 20:55 <Dileep Marrero MD - Last Filed: 08/09/25 15:59> Initial Vital Signs Temperature 98.8 F 08/05/25 02:14 Temperature Source Temporal Artery Scan 08/05/25 02:14 Pulse Rate 110 H 08/05/25 02:14 Respiratory Rate 20 08/05/25 02:14 Respiratory Effort Normal, Spontaneous, Non-Labored 08/05/25 02:14 Respiratory Depth Normal 08/05/25 02:14 Respiratory Pattern Normal 08/05/25 02:14 Blood Pressure 112/67 08/05/25 02:14 Blood Pressure Mean 82 08/05/25 02:14 Blood Pressure Position Supine 08/05/25 02:14 Pulse Oximetry 96 08/05/25 02:14 Oxygen Delivery Method Room Air 08/05/25 02:14 Vital Signs Temperature 98.8 F 08/05/25 02:14 Pulse Rate 110 H 08/05/25 02:14 Respiratory Rate 20 08/05/25 02:14 Blood Pressure 112/67 08/05/25 02:14 Pulse Oximetry 96 08/05/25 02:14 Oxygen Delivery Method Room Air 08/05/25 02:14 Temperature 98.5 F 08/10/25 20:55 Pulse Rate 74 08/11/25 07:00 Respiratory Rate 18 08/10/25 23:00 Blood Pressure 139/93 H 08/10/25 20:55 Pulse Oximetry 100 08/10/25 20:55 Oxygen Delivery Method Room Air 08/10/25 20:55 <Lawrence Mai DO - Last Filed: 08/07/25 22:31> Initial Vital Signs Temperature 98.8 F 08/05/25 02:14 Temperature Source Temporal Artery Scan 08/05/25 02:14 Pulse Rate 110 H 08/05/25 02:14 Respiratory Rate 20 08/05/25 02:14 Respiratory Effort Normal, Spontaneous, Non-Labored 08/05/25 02:14 Respiratory Depth Normal 08/05/25 02:14 Respiratory Pattern Normal 08/05/25 02:14 Blood Pressure 112/67 08/05/25 02:14 Blood Pressure Mean 82 08/05/25 02:14 Blood Pressure Position Supine 08/05/25 02:14 Pulse Oximetry 96 08/05/25 02:14 Oxygen Delivery Method Room Air 08/05/25 02:14 Vital Signs Temperature 98.8 F 08/05/25 02:14 Pulse Rate 110 H 08/05/25 02:14 Respiratory Rate 20 08/05/25 02:14 Blood Pressure 112/67 08/05/25 02:14 Pulse Oximetry 96 08/05/25 02:14 Oxygen Delivery Method Room Air 08/05/25 02:14 Temperature 98.5 F 08/10/25 20:55 Pulse Rate 74 08/11/25 07:00 Respiratory Rate 18 08/10/25 23:00 Blood Pressure 139/93 H 08/10/25 20:55 Pulse Oximetry 100 08/10/25 20:55 Oxygen Delivery Method Room Air 08/10/25 20:55 <Kateryna Kuo MD - Last Filed: 08/11/25 14:47> Initial Vital Signs Temperature 98.8 F 08/05/25 02:14 Temperature Source Temporal Artery Scan 08/05/25 02:14 Pulse Rate 110 H 08/05/25 02:14 Respiratory Rate 20 08/05/25 02:14 Respiratory Effort Normal, Spontaneous, Non-Labored 08/05/25 02:14 Respiratory Depth Normal 08/05/25 02:14 Respiratory Pattern Normal 08/05/25 02:14 Blood Pressure 112/67 08/05/25 02:14 Blood Pressure Mean 82 08/05/25 02:14 Blood Pressure Position Supine 08/05/25 02:14 Pulse Oximetry 96 08/05/25 02:14 Oxygen Delivery Method Room Air 08/05/25 02:14 Vital Signs Temperature 98.8 F 08/05/25 02:14 Pulse Rate 110 H 08/05/25 02:14 Respiratory Rate 20 08/05/25 02:14 Blood Pressure 112/67 08/05/25 02:14 Pulse Oximetry 96 08/05/25 02:14 Oxygen Delivery Method Room Air 08/05/25 02:14 Temperature 98.5 F 08/10/25 20:55 Pulse Rate 74 08/11/25 07:00 Respiratory Rate 18 08/10/25 23:00 Blood Pressure 139/93 H 08/10/25 20:55 Pulse Oximetry 100 08/10/25 20:55 Oxygen Delivery Method Room Air 08/10/25 20:55 <Derick Medrano MD - Last Filed: 08/07/25 09:08> Initial Vital Signs Temperature 98.8 F 08/05/25 02:14 Temperature Source Temporal Artery Scan 08/05/25 02:14 Pulse Rate 110 H 08/05/25 02:14 Respiratory Rate 20 08/05/25 02:14 Respiratory Effort Normal, Spontaneous, Non-Labored 08/05/25 02:14 Respiratory Depth Normal 08/05/25 02:14 Respiratory Pattern Normal 08/05/25 02:14 Blood Pressure 112/67 08/05/25 02:14 Blood Pressure Mean 82 08/05/25 02:14 Blood Pressure Position Supine 08/05/25 02:14 Pulse Oximetry 96 08/05/25 02:14 Oxygen Delivery Method Room Air 08/05/25 02:14 Vital Signs Temperature 98.8 F 08/05/25 02:14 Pulse Rate 110 H 08/05/25 02:14 Respiratory Rate 20 08/05/25 02:14 Blood Pressure 112/67 08/05/25 02:14 Pulse Oximetry 96 08/05/25 02:14 Oxygen Delivery Method Room Air 08/05/25 02:14 Temperature 98.5 F 08/10/25 20:55 Pulse Rate 74 08/11/25 07:00 Respiratory Rate 18 08/10/25 23:00 Blood Pressure 139/93 H 08/10/25 20:55 Pulse Oximetry 100 08/10/25 20:55 Oxygen Delivery Method Room Air 08/10/25 20:55 <Byron Donovan MD - Last Filed: 08/08/25 18:23> Initial Vital Signs Temperature 98.8 F 08/05/25 02:14 Temperature Source Temporal Artery Scan 08/05/25 02:14 Pulse Rate 110 H 08/05/25 02:14 Respiratory Rate 20 08/05/25 02:14 Respiratory Effort Normal, Spontaneous, Non-Labored 08/05/25 02:14 Respiratory Depth Normal 08/05/25 02:14 Respiratory Pattern Normal 08/05/25 02:14 Blood Pressure 112/67 08/05/25 02:14 Blood Pressure Mean 82 08/05/25 02:14 Blood Pressure Position Supine 08/05/25 02:14 Pulse Oximetry 96 08/05/25 02:14 Oxygen Delivery Method Room Air 08/05/25 02:14 Vital Signs Temperature 98.8 F 08/05/25 02:14 Pulse Rate 110 H 08/05/25 02:14 Respiratory Rate 20 08/05/25 02:14 Blood Pressure 112/67 08/05/25 02:14 Pulse Oximetry 96 08/05/25 02:14 Oxygen Delivery Method Room Air 08/05/25 02:14 Temperature 98.5 F 08/10/25 20:55 Pulse Rate 74 08/11/25 07:00 Respiratory Rate 18 08/10/25 23:00 Blood Pressure 139/93 H 08/10/25 20:55 Pulse Oximetry 100 08/10/25 20:55 Oxygen Delivery Method Room Air 08/10/25 20:55 <David Ohara MD - Last Filed: 08/09/25 23:09> Medications Administered Medications: Generic Name Dose Route Start Last Admin Trade Name Bishnu PRN Reason Stop Dose Admin Estradiol 6 mg 08/08/25 12:15 08/11/25 09:21 Estradiol 1 Mg Tablet PO 6 mg DAILY JUANJOSE Administration Olanzapine 10 mg 08/06/25 22:00 08/10/25 21:17 Olanzapine 5 Mg Tab.Rapdis PO 10 mg NIGHTLY JUANJOSE Administration Spironolactone 50 mg 08/08/25 12:15 08/11/25 09:20 Spironolactone 25 Mg Tablet PO 50 mg BID JUANJOSE Administration Discontinued Medications Generic Name Dose Route Start Last Admin Trade Name Richardq PRN Reason Stop Dose Admin Diazepam 10 mg 08/05/25 02:50 08/05/25 02:45 Diazepam 5 Mg/Ml Inj IM 08/05/25 02:51 10 mg ONCE ONE Administration Diphenhydramine HCl 50 mg 08/05/25 02:18 08/05/25 01:45 Diphenhydramine 50 Mg/Ml Inj IM 08/05/25 02:19 50 mg ONCE ONE Administration Haloperidol Lactate 10 mg 08/05/25 02:18 08/05/25 01:45 Haloperidol 5 Mg/Ml Inj IM 08/05/25 02:19 10 mg ONCE ONE Administration Lorazepam 2 mg 08/05/25 02:18 08/05/25 01:45 Lorazepam 2 Mg/Ml Inj IM 08/05/25 02:19 2 mg ONCE ONE Administration Olanzapine 10 mg 08/05/25 02:18 08/05/25 01:55 Olanzapine 5 Mg/Ml Inj IM 08/05/25 02:19 10 mg ONCE ONE Administration Olanzapine 10 mg 08/05/25 02:19 08/05/25 02:15 Olanzapine 5 Mg/Ml Inj IM 08/05/25 02:20 10 mg ONCE ONE Administration Potassium Chloride 40 meq 08/08/25 16:37 08/09/25 06:39 Potassium Chloride 10 Meq Capsule Er PO 08/08/25 16:38 Not Given ONCE ONE Sodium Chloride 5 ml 08/10/25 21:00 08/10/25 21:30 Sodium Chloride 0.9 % (Flush) 10 Ml Syringe IVF Not Given BID JUANJOSE <Megan Peter MD - Last Filed: 08/10/25 08:31> Generic Name Dose Route Start Last Admin Trade Name Freq PRN Reason Stop Dose Admin Estradiol 6 mg 08/08/25 12:15 08/11/25 09:21 Estradiol 1 Mg Tablet PO 6 mg DAILY JUANJOSE Administration Olanzapine 10 mg 08/06/25 22:00 08/10/25 21:17 Olanzapine 5 Mg Tab.Rapdis PO 10 mg NIGHTLY JUANJOSE Administration Spironolactone 50 mg 08/08/25 12:15 08/11/25 09:20 Spironolactone 25 Mg Tablet PO 50 mg BID JUANJOSE Administration Discontinued Medications Generic Name Dose Route Start Last Admin Trade Name Freq PRN Reason Stop Dose Admin Diazepam 10 mg 08/05/25 02:50 08/05/25 02:45 Diazepam 5 Mg/Ml Inj IM 08/05/25 02:51 10 mg ONCE ONE Administration Diphenhydramine HCl 50 mg 08/05/25 02:18 08/05/25 01:45 Diphenhydramine 50 Mg/Ml Inj IM 08/05/25 02:19 50 mg ONCE ONE Administration Haloperidol Lactate 10 mg 08/05/25 02:18 08/05/25 01:45 Haloperidol 5 Mg/Ml Inj IM 08/05/25 02:19 10 mg ONCE ONE Administration Lorazepam 2 mg 08/05/25 02:18 08/05/25 01:45 Lorazepam 2 Mg/Ml Inj IM 08/05/25 02:19 2 mg ONCE ONE Administration Olanzapine 10 mg 08/05/25 02:18 08/05/25 01:55 Olanzapine 5 Mg/Ml Inj IM 08/05/25 02:19 10 mg ONCE ONE Administration Olanzapine 10 mg 08/05/25 02:19 08/05/25 02:15 Olanzapine 5 Mg/Ml Inj IM 08/05/25 02:20 10 mg ONCE ONE Administration Potassium Chloride 40 meq 08/08/25 16:37 08/09/25 06:39 Potassium Chloride 10 Meq Capsule Er PO 08/08/25 16:38 Not Given ONCE ONE Sodium Chloride 5 ml 08/10/25 21:00 08/10/25 21:30 Sodium Chloride 0.9 % (Flush) 10 Ml Syringe IVF Not Given BID JUANJOSE <Dileep Marrero MD - Last Filed: 08/09/25 15:59> Generic Name Dose Route Start Last Admin Trade Name Freq PRN Reason Stop Dose Admin Estradiol 6 mg 08/08/25 12:15 08/11/25 09:21 Estradiol 1 Mg Tablet PO 6 mg DAILY JUANJOSE Administration Olanzapine 10 mg 08/06/25 22:00 08/10/25 21:17 Olanzapine 5 Mg Tab.Rapdis PO 10 mg NIGHTLY JUANJOSE Administration Spironolactone 50 mg 08/08/25 12:15 08/11/25 09:20 Spironolactone 25 Mg Tablet PO 50 mg BID JUANJOSE Administration Discontinued Medications Generic Name Dose Route Start Last Admin Trade Name Freq PRN Reason Stop Dose Admin Diazepam 10 mg 08/05/25 02:50 08/05/25 02:45 Diazepam 5 Mg/Ml Inj IM 08/05/25 02:51 10 mg ONCE ONE Administration Diphenhydramine HCl 50 mg 08/05/25 02:18 08/05/25 01:45 Diphenhydramine 50 Mg/Ml Inj IM 08/05/25 02:19 50 mg ONCE ONE Administration Haloperidol Lactate 10 mg 08/05/25 02:18 08/05/25 01:45 Haloperidol 5 Mg/Ml Inj IM 08/05/25 02:19 10 mg ONCE ONE Administration Lorazepam 2 mg 08/05/25 02:18 08/05/25 01:45 Lorazepam 2 Mg/Ml Inj IM 08/05/25 02:19 2 mg ONCE ONE Administration Olanzapine 10 mg 08/05/25 02:18 08/05/25 01:55 Olanzapine 5 Mg/Ml Inj IM 08/05/25 02:19 10 mg ONCE ONE Administration Olanzapine 10 mg 08/05/25 02:19 08/05/25 02:15 Olanzapine 5 Mg/Ml Inj IM 08/05/25 02:20 10 mg ONCE ONE Administration Potassium Chloride 40 meq 08/08/25 16:37 08/09/25 06:39 Potassium Chloride 10 Meq Capsule Er PO 08/08/25 16:38 Not Given ONCE ONE Sodium Chloride 5 ml 08/10/25 21:00 08/10/25 21:30 Sodium Chloride 0.9 % (Flush) 10 Ml Syringe IVF Not Given BID JUANJOSE <Lawrence Mai, DO - Last Filed: 08/07/25 22:31> Generic Name Dose Route Start Last Admin Trade Name Bishnu PRN Reason Stop Dose Admin Estradiol 6 mg 08/08/25 12:15 08/11/25 09:21 Estradiol 1 Mg Tablet PO 6 mg DAILY JUANJOSE Administration Olanzapine 10 mg 08/06/25 22:00 08/10/25 21:17 Olanzapine 5 Mg Tab.Rapdis PO 10 mg NIGHTLY JUANJOSE Administration Spironolactone 50 mg 08/08/25 12:15 08/11/25 09:20 Spironolactone 25 Mg Tablet PO 50 mg BID JUANJOSE Administration Discontinued Medications Generic Name Dose Route Start Last Admin Trade Name Bishnu PRN Reason Stop Dose Admin Diazepam 10 mg 08/05/25 02:50 08/05/25 02:45 Diazepam 5 Mg/Ml Inj IM 08/05/25 02:51 10 mg ONCE ONE Administration Diphenhydramine HCl 50 mg 08/05/25 02:18 08/05/25 01:45 Diphenhydramine 50 Mg/Ml Inj IM 08/05/25 02:19 50 mg ONCE ONE Administration Haloperidol Lactate 10 mg 08/05/25 02:18 08/05/25 01:45 Haloperidol 5 Mg/Ml Inj IM 08/05/25 02:19 10 mg ONCE ONE Administration Lorazepam 2 mg 08/05/25 02:18 08/05/25 01:45 Lorazepam 2 Mg/Ml Inj IM 08/05/25 02:19 2 mg ONCE ONE Administration Olanzapine 10 mg 08/05/25 02:18 08/05/25 01:55 Olanzapine 5 Mg/Ml Inj IM 08/05/25 02:19 10 mg ONCE ONE Administration Olanzapine 10 mg 08/05/25 02:19 08/05/25 02:15 Olanzapine 5 Mg/Ml Inj IM 08/05/25 02:20 10 mg ONCE ONE Administration Potassium Chloride 40 meq 08/08/25 16:37 08/09/25 06:39 Potassium Chloride 10 Meq Capsule Er PO 08/08/25 16:38 Not Given ONCE ONE Sodium Chloride 5 ml 08/10/25 21:00 08/10/25 21:30 Sodium Chloride 0.9 % (Flush) 10 Ml Syringe IVF Not Given BID JUANJOSE <Kateryna Kuo MD - Last Filed: 08/11/25 14:47> Generic Name Dose Route Start Last Admin Trade Name Freq PRN Reason Stop Dose Admin Estradiol 6 mg 08/08/25 12:15 08/11/25 09:21 Estradiol 1 Mg Tablet PO 6 mg DAILY JUANJOSE Administration Olanzapine 10 mg 08/06/25 22:00 08/10/25 21:17 Olanzapine 5 Mg Tab.Rapdis PO 10 mg NIGHTLY JUANJOSE Administration Spironolactone 50 mg 08/08/25 12:15 08/11/25 09:20 Spironolactone 25 Mg Tablet PO 50 mg BID JUANJOSE Administration Discontinued Medications Generic Name Dose Route Start Last Admin Trade Name Freq PRN Reason Stop Dose Admin Diazepam 10 mg 08/05/25 02:50 08/05/25 02:45 Diazepam 5 Mg/Ml Inj IM 08/05/25 02:51 10 mg ONCE ONE Administration Diphenhydramine HCl 50 mg 08/05/25 02:18 08/05/25 01:45 Diphenhydramine 50 Mg/Ml Inj IM 08/05/25 02:19 50 mg ONCE ONE Administration Haloperidol Lactate 10 mg 08/05/25 02:18 08/05/25 01:45 Haloperidol 5 Mg/Ml Inj IM 08/05/25 02:19 10 mg ONCE ONE Administration Lorazepam 2 mg 08/05/25 02:18 08/05/25 01:45 Lorazepam 2 Mg/Ml Inj IM 08/05/25 02:19 2 mg ONCE ONE Administration Olanzapine 10 mg 08/05/25 02:18 08/05/25 01:55 Olanzapine 5 Mg/Ml Inj IM 08/05/25 02:19 10 mg ONCE ONE Administration Olanzapine 10 mg 08/05/25 02:19 08/05/25 02:15 Olanzapine 5 Mg/Ml Inj IM 08/05/25 02:20 10 mg ONCE ONE Administration Potassium Chloride 40 meq 08/08/25 16:37 08/09/25 06:39 Potassium Chloride 10 Meq Capsule Er PO 08/08/25 16:38 Not Given ONCE ONE Sodium Chloride 5 ml 08/10/25 21:00 08/10/25 21:30 Sodium Chloride 0.9 % (Flush) 10 Ml Syringe IVF Not Given BID JUANJOSE <Derick Medrano MD - Last Filed: 08/07/25 09:08> Generic Name Dose Route Start Last Admin Trade Name Freq PRN Reason Stop Dose Admin Estradiol 6 mg 08/08/25 12:15 08/11/25 09:21 Estradiol 1 Mg Tablet PO 6 mg DAILY JUANJOSE Administration Olanzapine 10 mg 08/06/25 22:00 08/10/25 21:17 Olanzapine 5 Mg Tab.Rapdis PO 10 mg NIGHTLY JUANJOSE Administration Spironolactone 50 mg 08/08/25 12:15 08/11/25 09:20 Spironolactone 25 Mg Tablet PO 50 mg BID JUANJOSE Administration Discontinued Medications Generic Name Dose Route Start Last Admin Trade Name Freq PRN Reason Stop Dose Admin Diazepam 10 mg 08/05/25 02:50 08/05/25 02:45 Diazepam 5 Mg/Ml Inj IM 08/05/25 02:51 10 mg ONCE ONE Administration Diphenhydramine HCl 50 mg 08/05/25 02:18 08/05/25 01:45 Diphenhydramine 50 Mg/Ml Inj IM 08/05/25 02:19 50 mg ONCE ONE Administration Haloperidol Lactate 10 mg 08/05/25 02:18 08/05/25 01:45 Haloperidol 5 Mg/Ml Inj IM 08/05/25 02:19 10 mg ONCE ONE Administration Lorazepam 2 mg 08/05/25 02:18 08/05/25 01:45 Lorazepam 2 Mg/Ml Inj IM 08/05/25 02:19 2 mg ONCE ONE Administration Olanzapine 10 mg 08/05/25 02:18 08/05/25 01:55 Olanzapine 5 Mg/Ml Inj IM 08/05/25 02:19 10 mg ONCE ONE Administration Olanzapine 10 mg 08/05/25 02:19 08/05/25 02:15 Olanzapine 5 Mg/Ml Inj IM 08/05/25 02:20 10 mg ONCE ONE Administration Potassium Chloride 40 meq 08/08/25 16:37 08/09/25 06:39 Potassium Chloride 10 Meq Capsule Er PO 08/08/25 16:38 Not Given ONCE ONE Sodium Chloride 5 ml 08/10/25 21:00 08/10/25 21:30 Sodium Chloride 0.9 % (Flush) 10 Ml Syringe IVF Not Given BID JUANJOSE <Byron Donovan MD - Last Filed: 08/08/25 18:23> Generic Name Dose Route Start Last Admin Trade Name Frestoney PRN Reason Stop Dose Admin Estradiol 6 mg 08/08/25 12:15 08/11/25 09:21 Estradiol 1 Mg Tablet PO 6 mg DAILY JUANJOSE Administration Olanzapine 10 mg 08/06/25 22:00 08/10/25 21:17 Olanzapine 5 Mg Tab.Rapdis PO 10 mg NIGHTLY JUANJOSE Administration Spironolactone 50 mg 08/08/25 12:15 08/11/25 09:20 Spironolactone 25 Mg Tablet PO 50 mg BID JUANJOSE Administration Discontinued Medications Generic Name Dose Route Start Last Admin Trade Name Richardq PRN Reason Stop Dose Admin Diazepam 10 mg 08/05/25 02:50 08/05/25 02:45 Diazepam 5 Mg/Ml Inj IM 08/05/25 02:51 10 mg ONCE ONE Administration Diphenhydramine HCl 50 mg 08/05/25 02:18 08/05/25 01:45 Diphenhydramine 50 Mg/Ml Inj IM 08/05/25 02:19 50 mg ONCE ONE Administration Haloperidol Lactate 10 mg 08/05/25 02:18 08/05/25 01:45 Haloperidol 5 Mg/Ml Inj IM 08/05/25 02:19 10 mg ONCE ONE Administration Lorazepam 2 mg 08/05/25 02:18 08/05/25 01:45 Lorazepam 2 Mg/Ml Inj IM 08/05/25 02:19 2 mg ONCE ONE Administration Olanzapine 10 mg 08/05/25 02:18 08/05/25 01:55 Olanzapine 5 Mg/Ml Inj IM 08/05/25 02:19 10 mg ONCE ONE Administration Olanzapine 10 mg 08/05/25 02:19 08/05/25 02:15 Olanzapine 5 Mg/Ml Inj IM 08/05/25 02:20 10 mg ONCE ONE Administration Potassium Chloride 40 meq 08/08/25 16:37 08/09/25 06:39 Potassium Chloride 10 Meq Capsule Er PO 08/08/25 16:38 Not Given ONCE ONE Sodium Chloride 5 ml 08/10/25 21:00 08/10/25 21:30 Sodium Chloride 0.9 % (Flush) 10 Ml Syringe IVF Not Given BID JUANJOSE <David Ohara MD - Last Filed: 08/09/25 23:09> Medical Decision Making MDM Narrative Medical decision making narrative: Patient was signed out to ca 08/07 pending placement. We are having difficulty getting the patient placed due to previous outburst. Based on chart review and direct confirmation by nursing staff she has not had 80 further outbursts after she was taken off restraints 2 days ago. When I spoke to the patient she seemed calm. I spoke to the parents and they are still looking for inpatient treatment considering the 2 episodes of psychosis that occurred over the past 2 weeks. <Lawrence Mai DO - Last Filed: 08/07/25 22:31> Patient was signed out to ca 08/07 pending placement. We are having difficulty getting the patient placed due to previous outburst. Based on chart review and direct confirmation by nursing staff she has not had 80 further outbursts after she was taken off restraints 2 days ago. When I spoke to the patient she seemed calm. I spoke to the parents and they are still looking for inpatient treatment considering the 2 episodes of psychosis that occurred over the past 2 weeks. This patient continues to wait for some kind of inpatient placement. The [facility] is involved and arrangements are made for a commitment as the 72 hour hold will be expiring within a day or so. The patient continues to be pleasant and cooperative. <David Ohara MD - Last Filed: 08/09/25 23:09> Medical Records Medical records reviewed: Yes I reviewed the patient's medical records <Derick Medrano MD - Last Filed: 08/07/25 09:08> Lab Data Lab results reviewed: Yes I reviewed the patient's lab results <Megan Peter MD - Last Filed: 08/10/25 08:31> Lab results narrative: Labs are reassuring. Noncontributory. <Megan Peter MD - Last Filed: 08/10/25 08:31> Labs: Lab Results 08/05/25 08/05/25 08/05/25 Range/Units 02:30 02:35 08:36 WBC 8.82 (4.50-11.00) K/uL RBC 4.15 L (4.30-5.90) m/uL Hgb 12.6 L (13.5-17.5) gm/dL Hct 36.5 L (37.0-53.0) % MCV 88 (80-100) fL MCH 30 (26-34) pg MCHC 35 (32-36) gm/dL RDW Coeff of Naila 11.8 (11.5-15.5) % Plt Count 195 (140-440) K/uL Neut % (Auto) 79.0 H (42.0-72.0) % Lymph % (Auto) 10.8 L (20-44) % [place] % (Auto) 8.4 (0.0-11.0) % Eos % (Auto) 1.5 (0.0-7.0) % Baso % (Auto) 0.2 (0.0-3.0) % Neut # (Auto) 7.00 (1.7-7.0) K/uL Lymph # (Auto) 1.00 (0.90-2.90) K/uL [place] # (Auto) 0.70 (0.00-0.90) K/UL Eos # (Auto) 0.13 (0.00-0.50) K/uL Baso # (Auto) 0.02 (0.00-0.30) K/uL Abs Immat Gran (auto) 0.01 (0.00-0.30) K/uL Imm/Tot Granulo (auto) 0.1 % Sodium 139 (135-149) mmol/L Potassium 3.0 L (3.6-5.1) mmol/L Chloride 103 (96-114) mmol/L Carbon Dioxide 25 (20-32) mmol/L Anion Gap 11 (7-15) mEq/L BUN 18 (5-24) mg/dL Creatinine 1.2 (0.5-1.5) mg/dL Estimated Creat Clear 94.39 Estimated GFR 87 ml/min Glucose 118 H (60-115) mg/dL Calcium 9.9 (8.4-10.6) mg/dL TSH 2.140 (0.270-4.200) uIU/mL Salicylates < 1.0 L (1.0-10) mg/dL Urine Opiates Screen Negative (Negative) Ur Oxycodone Screen Negative (Negative) Urine Methadone Screen Negative (Negative) Acetaminophen < 10.0 (10.0-30.0) ug/mL Ur Barbiturates Screen Negative (Negative) U Tricyclic Antidepress Negative (Negative) Ur Phencyclidine Scrn Negative (Negative) Ur Amphetamines Screen Negative (Negative) U Methamphetamines Scrn Negative (Negative) U Benzodiazepines Scrn Negative (Negative) Urine Cocaine Screen Negative (Negative) U Marijuana (THC) Screen Negative (Negative) Ur Drug Screen Comment See Note Ethyl Alcohol < 0.01 (0.01-0.03) % SARS-CoV-2 (PCR) Negative SARS-CoV-2 (Negative) 08/08/25 Range/Units 20:19 WBC (4.50-11.00) K/uL RBC (4.30-5.90) m/uL Hgb (13.5-17.5) gm/dL Hct (37.0-53.0) % MCV (80-100) fL MCH (26-34) pg MCHC (32-36) gm/dL RDW Coeff of Naila (11.5-15.5) % Plt Count (140-440) K/uL Neut % (Auto) (42.0-72.0) % Lymph % (Auto) (20-44) % [place] % (Auto) (0.0-11.0) % Eos % (Auto) (0.0-7.0) % Baso % (Auto) (0.0-3.0) % Neut # (Auto) (1.7-7.0) K/uL Lymph # (Auto) (0.90-2.90) K/uL [place] # (Auto) (0.00-0.90) K/UL Eos # (Auto) (0.00-0.50) K/uL Baso # (Auto) (0.00-0.30) K/uL Abs Immat Gran (auto) (0.00-0.30) K/uL Imm/Tot Granulo (auto) % Sodium 138 (135-149) mmol/L Potassium 4.0 (3.6-5.1) mmol/L Chloride 104 (96-114) mmol/L Carbon Dioxide 26 (20-32) mmol/L Anion Gap 8 (7-15) mEq/L BUN 14 (5-24) mg/dL Creatinine 0.8 (0.5-1.5) mg/dL Estimated Creat Clear 141.59 Estimated GFR 127 ml/min Glucose 105 (60-115) mg/dL Calcium 9.7 (8.4-10.6) mg/dL TSH (0.270-4.200) uIU/mL Salicylates (1.0-10) mg/dL Urine Opiates Screen (Negative) Ur Oxycodone Screen (Negative) Urine Methadone Screen (Negative) Acetaminophen (10.0-30.0) ug/mL Ur Barbiturates Screen (Negative) U Tricyclic Antidepress (Negative) Ur Phencyclidine Scrn (Negative) Ur Amphetamines Screen (Negative) U Methamphetamines Scrn (Negative) U Benzodiazepines Scrn (Negative) Urine Cocaine Screen (Negative) U Marijuana (THC) Screen (Negative) Ur Drug Screen Comment Ethyl Alcohol (0.01-0.03) % SARS-CoV-2 (PCR) (Negative) <Megan Peter MD - Last Filed: 08/10/25 08:31> Lab Results 08/05/25 08/05/25 08/05/25 Range/Units 02:30 02:35 08:36 WBC 8.82 (4.50-11.00) K/uL RBC 4.15 L (4.30-5.90) m/uL Hgb 12.6 L (13.5-17.5) gm/dL Hct 36.5 L (37.0-53.0) % MCV 88 (80-100) fL MCH 30 (26-34) pg MCHC 35 (32-36) gm/dL RDW Coeff of Naila 11.8 (11.5-15.5) % Plt Count 195 (140-440) K/uL Neut % (Auto) 79.0 H (42.0-72.0) % Lymph % (Auto) 10.8 L (20-44) % [place] % (Auto) 8.4 (0.0-11.0) % Eos % (Auto) 1.5 (0.0-7.0) % Baso % (Auto) 0.2 (0.0-3.0) % Neut # (Auto) 7.00 (1.7-7.0) K/uL Lymph # (Auto) 1.00 (0.90-2.90) K/uL [place] # (Auto) 0.70 (0.00-0.90) K/UL Eos # (Auto) 0.13 (0.00-0.50) K/uL Baso # (Auto) 0.02 (0.00-0.30) K/uL Abs Immat Gran (auto) 0.01 (0.00-0.30) K/uL Imm/Tot Granulo (auto) 0.1 % Sodium 139 (135-149) mmol/L Potassium 3.0 L (3.6-5.1) mmol/L Chloride 103 (96-114) mmol/L Carbon Dioxide 25 (20-32) mmol/L Anion Gap 11 (7-15) mEq/L BUN 18 (5-24) mg/dL Creatinine 1.2 (0.5-1.5) mg/dL Estimated Creat Clear 94.39 Estimated GFR 87 ml/min Glucose 118 H (60-115) mg/dL Calcium 9.9 (8.4-10.6) mg/dL TSH 2.140 (0.270-4.200) uIU/mL Salicylates < 1.0 L (1.0-10) mg/dL Urine Opiates Screen Negative (Negative) Ur Oxycodone Screen Negative (Negative) Urine Methadone Screen Negative (Negative) Acetaminophen < 10.0 (10.0-30.0) ug/mL Ur Barbiturates Screen Negative (Negative) U Tricyclic Antidepress Negative (Negative) Ur Phencyclidine Scrn Negative (Negative) Ur Amphetamines Screen Negative (Negative) U Methamphetamines Scrn Negative (Negative) U Benzodiazepines Scrn Negative (Negative) Urine Cocaine Screen Negative (Negative) U Marijuana (THC) Screen Negative (Negative) Ur Drug Screen Comment See Note Ethyl Alcohol < 0.01 (0.01-0.03) % SARS-CoV-2 (PCR) Negative SARS-CoV-2 (Negative) 08/08/25 Range/Units 20:19 WBC (4.50-11.00) K/uL RBC (4.30-5.90) m/uL Hgb (13.5-17.5) gm/dL Hct (37.0-53.0) % MCV (80-100) fL MCH (26-34) pg MCHC (32-36) gm/dL RDW Coeff of Naila (11.5-15.5) % Plt Count (140-440) K/uL Neut % (Auto) (42.0-72.0) % Lymph % (Auto) (20-44) % [place] % (Auto) (0.0-11.0) % Eos % (Auto) (0.0-7.0) % Baso % (Auto) (0.0-3.0) % Neut # (Auto) (1.7-7.0) K/uL Lymph # (Auto) (0.90-2.90) K/uL [place] # (Auto) (0.00-0.90) K/UL Eos # (Auto) (0.00-0.50) K/uL Baso # (Auto) (0.00-0.30) K/uL Abs Immat Gran (auto) (0.00-0.30) K/uL Imm/Tot Granulo (auto) % Sodium 138 (135-149) mmol/L Potassium 4.0 (3.6-5.1) mmol/L Chloride 104 (96-114) mmol/L Carbon Dioxide 26 (20-32) mmol/L Anion Gap 8 (7-15) mEq/L BUN 14 (5-24) mg/dL Creatinine 0.8 (0.5-1.5) mg/dL Estimated Creat Clear 141.59 Estimated GFR 127 ml/min Glucose 105 (60-115) mg/dL Calcium 9.7 (8.4-10.6) mg/dL TSH (0.270-4.200) uIU/mL Salicylates (1.0-10) mg/dL Urine Opiates Screen (Negative) Ur Oxycodone Screen (Negative) Urine Methadone Screen (Negative) Acetaminophen (10.0-30.0) ug/mL Ur Barbiturates Screen (Negative) U Tricyclic Antidepress (Negative) Ur Phencyclidine Scrn (Negative) Ur Amphetamines Screen (Negative) U Methamphetamines Scrn (Negative) U Benzodiazepines Scrn (Negative) Urine Cocaine Screen (Negative) U Marijuana (THC) Screen (Negative) Ur Drug Screen Comment Ethyl Alcohol (0.01-0.03) % SARS-CoV-2 (PCR) (Negative) <Dileep Marrero MD - Last Filed: 08/09/25 15:59> Lab Results 08/05/25 08/05/25 08/05/25 Range/Units 02:30 02:35 08:36 WBC 8.82 (4.50-11.00) K/uL RBC 4.15 L (4.30-5.90) m/uL Hgb 12.6 L (13.5-17.5) gm/dL Hct 36.5 L (37.0-53.0) % MCV 88 (80-100) fL MCH 30 (26-34) pg MCHC 35 (32-36) gm/dL RDW Coeff of Naila 11.8 (11.5-15.5) % Plt Count 195 (140-440) K/uL Neut % (Auto) 79.0 H (42.0-72.0) % Lymph % (Auto) 10.8 L (20-44) % [place] % (Auto) 8.4 (0.0-11.0) % Eos % (Auto) 1.5 (0.0-7.0) % Baso % (Auto) 0.2 (0.0-3.0) % Neut # (Auto) 7.00 (1.7-7.0) K/uL Lymph # (Auto) 1.00 (0.90-2.90) K/uL [place] # (Auto) 0.70 (0.00-0.90) K/UL Eos # (Auto) 0.13 (0.00-0.50) K/uL Baso # (Auto) 0.02 (0.00-0.30) K/uL Abs Immat Gran (auto) 0.01 (0.00-0.30) K/uL Imm/Tot Granulo (auto) 0.1 % Sodium 139 (135-149) mmol/L Potassium 3.0 L (3.6-5.1) mmol/L Chloride 103 (96-114) mmol/L Carbon Dioxide 25 (20-32) mmol/L Anion Gap 11 (7-15) mEq/L BUN 18 (5-24) mg/dL Creatinine 1.2 (0.5-1.5) mg/dL Estimated Creat Clear 94.39 Estimated GFR 87 ml/min Glucose 118 H (60-115) mg/dL Calcium 9.9 (8.4-10.6) mg/dL TSH 2.140 (0.270-4.200) uIU/mL Salicylates < 1.0 L (1.0-10) mg/dL Urine Opiates Screen Negative (Negative) Ur Oxycodone Screen Negative (Negative) Urine Methadone Screen Negative (Negative) Acetaminophen < 10.0 (10.0-30.0) ug/mL Ur Barbiturates Screen Negative (Negative) U Tricyclic Antidepress Negative (Negative) Ur Phencyclidine Scrn Negative (Negative) Ur Amphetamines Screen Negative (Negative) U Methamphetamines Scrn Negative (Negative) U Benzodiazepines Scrn Negative (Negative) Urine Cocaine Screen Negative (Negative) U Marijuana (THC) Screen Negative (Negative) Ur Drug Screen Comment See Note Ethyl Alcohol < 0.01 (0.01-0.03) % SARS-CoV-2 (PCR) Negative SARS-CoV-2 (Negative) 08/08/25 Range/Units 20:19 WBC (4.50-11.00) K/uL RBC (4.30-5.90) m/uL Hgb (13.5-17.5) gm/dL Hct (37.0-53.0) % MCV (80-100) fL MCH (26-34) pg MCHC (32-36) gm/dL RDW Coeff of Naila (11.5-15.5) % Plt Count (140-440) K/uL Neut % (Auto) (42.0-72.0) % Lymph % (Auto) (20-44) % [place] % (Auto) (0.0-11.0) % Eos % (Auto) (0.0-7.0) % Baso % (Auto) (0.0-3.0) % Neut # (Auto) (1.7-7.0) K/uL Lymph # (Auto) (0.90-2.90) K/uL [place] # (Auto) (0.00-0.90) K/UL Eos # (Auto) (0.00-0.50) K/uL Baso # (Auto) (0.00-0.30) K/uL Abs Immat Gran (auto) (0.00-0.30) K/uL Imm/Tot Granulo (auto) % Sodium 138 (135-149) mmol/L Potassium 4.0 (3.6-5.1) mmol/L Chloride 104 (96-114) mmol/L Carbon Dioxide 26 (20-32) mmol/L Anion Gap 8 (7-15) mEq/L BUN 14 (5-24) mg/dL Creatinine 0.8 (0.5-1.5) mg/dL Estimated Creat Clear 141.59 Estimated GFR 127 ml/min Glucose 105 (60-115) mg/dL Calcium 9.7 (8.4-10.6) mg/dL TSH (0.270-4.200) uIU/mL Salicylates (1.0-10) mg/dL Urine Opiates Screen (Negative) Ur Oxycodone Screen (Negative) Urine Methadone Screen (Negative) Acetaminophen (10.0-30.0) ug/mL Ur Barbiturates Screen (Negative) U Tricyclic Antidepress (Negative) Ur Phencyclidine Scrn (Negative) Ur Amphetamines Screen (Negative) U Methamphetamines Scrn (Negative) U Benzodiazepines Scrn (Negative) Urine Cocaine Screen (Negative) U Marijuana (THC) Screen (Negative) Ur Drug Screen Comment Ethyl Alcohol (0.01-0.03) % SARS-CoV-2 (PCR) (Negative) <Lawrence Mai, DO - Last Filed: 08/07/25 22:31> Lab Results 08/05/25 08/05/25 08/05/25 Range/Units 02:30 02:35 08:36 WBC 8.82 (4.50-11.00) K/uL RBC 4.15 L (4.30-5.90) m/uL Hgb 12.6 L (13.5-17.5) gm/dL Hct 36.5 L (37.0-53.0) % MCV 88 (80-100) fL MCH 30 (26-34) pg MCHC 35 (32-36) gm/dL RDW Coeff of Naila 11.8 (11.5-15.5) % Plt Count 195 (140-440) K/uL Neut % (Auto) 79.0 H (42.0-72.0) % Lymph % (Auto) 10.8 L (20-44) % [place] % (Auto) 8.4 (0.0-11.0) % Eos % (Auto) 1.5 (0.0-7.0) % Baso % (Auto) 0.2 (0.0-3.0) % Neut # (Auto) 7.00 (1.7-7.0) K/uL Lymph # (Auto) 1.00 (0.90-2.90) K/uL [place] # (Auto) 0.70 (0.00-0.90) K/UL Eos # (Auto) 0.13 (0.00-0.50) K/uL Baso # (Auto) 0.02 (0.00-0.30) K/uL Abs Immat Gran (auto) 0.01 (0.00-0.30) K/uL Imm/Tot Granulo (auto) 0.1 % Sodium 139 (135-149) mmol/L Potassium 3.0 L (3.6-5.1) mmol/L Chloride 103 (96-114) mmol/L Carbon Dioxide 25 (20-32) mmol/L Anion Gap 11 (7-15) mEq/L BUN 18 (5-24) mg/dL Creatinine 1.2 (0.5-1.5) mg/dL Estimated Creat Clear 94.39 Estimated GFR 87 ml/min Glucose 118 H (60-115) mg/dL Calcium 9.9 (8.4-10.6) mg/dL TSH 2.140 (0.270-4.200) uIU/mL Salicylates < 1.0 L (1.0-10) mg/dL Urine Opiates Screen Negative (Negative) Ur Oxycodone Screen Negative (Negative) Urine Methadone Screen Negative (Negative) Acetaminophen < 10.0 (10.0-30.0) ug/mL Ur Barbiturates Screen Negative (Negative) U Tricyclic Antidepress Negative (Negative) Ur Phencyclidine Scrn Negative (Negative) Ur Amphetamines Screen Negative (Negative) U Methamphetamines Scrn Negative (Negative) U Benzodiazepines Scrn Negative (Negative) Urine Cocaine Screen Negative (Negative) U Marijuana (THC) Screen Negative (Negative) Ur Drug Screen Comment See Note Ethyl Alcohol < 0.01 (0.01-0.03) % SARS-CoV-2 (PCR) Negative SARS-CoV-2 (Negative) 08/08/25 Range/Units 20:19 WBC (4.50-11.00) K/uL RBC (4.30-5.90) m/uL Hgb (13.5-17.5) gm/dL Hct (37.0-53.0) % MCV (80-100) fL MCH (26-34) pg MCHC (32-36) gm/dL RDW Coeff of Naila (11.5-15.5) % Plt Count (140-440) K/uL Neut % (Auto) (42.0-72.0) % Lymph % (Auto) (20-44) % [place] % (Auto) (0.0-11.0) % Eos % (Auto) (0.0-7.0) % Baso % (Auto) (0.0-3.0) % Neut # (Auto) (1.7-7.0) K/uL Lymph # (Auto) (0.90-2.90) K/uL [place] # (Auto) (0.00-0.90) K/UL Eos # (Auto) (0.00-0.50) K/uL Baso # (Auto) (0.00-0.30) K/uL Abs Immat Gran (auto) (0.00-0.30) K/uL Imm/Tot Granulo (auto) % Sodium 138 (135-149) mmol/L Potassium 4.0 (3.6-5.1) mmol/L Chloride 104 (96-114) mmol/L Carbon Dioxide 26 (20-32) mmol/L Anion Gap 8 (7-15) mEq/L BUN 14 (5-24) mg/dL Creatinine 0.8 (0.5-1.5) mg/dL Estimated Creat Clear 141.59 Estimated GFR 127 ml/min Glucose 105 (60-115) mg/dL Calcium 9.7 (8.4-10.6) mg/dL TSH (0.270-4.200) uIU/mL Salicylates (1.0-10) mg/dL Urine Opiates Screen (Negative) Ur Oxycodone Screen (Negative) Urine Methadone Screen (Negative) Acetaminophen (10.0-30.0) ug/mL Ur Barbiturates Screen (Negative) U Tricyclic Antidepress (Negative) Ur Phencyclidine Scrn (Negative) Ur Amphetamines Screen (Negative) U Methamphetamines Scrn (Negative) U Benzodiazepines Scrn (Negative) Urine Cocaine Screen (Negative) U Marijuana (THC) Screen (Negative) Ur Drug Screen Comment Ethyl Alcohol (0.01-0.03) % SARS-CoV-2 (PCR) (Negative) <Kateryna Kuo MD - Last Filed: 08/11/25 14:47> Lab Results 08/05/25 08/05/25 08/05/25 Range/Units 02:30 02:35 08:36 WBC 8.82 (4.50-11.00) K/uL RBC 4.15 L (4.30-5.90) m/uL Hgb 12.6 L (13.5-17.5) gm/dL Hct 36.5 L (37.0-53.0) % MCV 88 (80-100) fL MCH 30 (26-34) pg MCHC 35 (32-36) gm/dL RDW Coeff of Naila 11.8 (11.5-15.5) % Plt Count 195 (140-440) K/uL Neut % (Auto) 79.0 H (42.0-72.0) % Lymph % (Auto) 10.8 L (20-44) % [place] % (Auto) 8.4 (0.0-11.0) % Eos % (Auto) 1.5 (0.0-7.0) % Baso % (Auto) 0.2 (0.0-3.0) % Neut # (Auto) 7.00 (1.7-7.0) K/uL Lymph # (Auto) 1.00 (0.90-2.90) K/uL [place] # (Auto) 0.70 (0.00-0.90) K/UL Eos # (Auto) 0.13 (0.00-0.50) K/uL Baso # (Auto) 0.02 (0.00-0.30) K/uL Abs Immat Gran (auto) 0.01 (0.00-0.30) K/uL Imm/Tot Granulo (auto) 0.1 % Sodium 139 (135-149) mmol/L Potassium 3.0 L (3.6-5.1) mmol/L Chloride 103 (96-114) mmol/L Carbon Dioxide 25 (20-32) mmol/L Anion Gap 11 (7-15) mEq/L BUN 18 (5-24) mg/dL Creatinine 1.2 (0.5-1.5) mg/dL Estimated Creat Clear 94.39 Estimated GFR 87 ml/min Glucose 118 H (60-115) mg/dL Calcium 9.9 (8.4-10.6) mg/dL TSH 2.140 (0.270-4.200) uIU/mL Salicylates < 1.0 L (1.0-10) mg/dL Urine Opiates Screen Negative (Negative) Ur Oxycodone Screen Negative (Negative) Urine Methadone Screen Negative (Negative) Acetaminophen < 10.0 (10.0-30.0) ug/mL Ur Barbiturates Screen Negative (Negative) U Tricyclic Antidepress Negative (Negative) Ur Phencyclidine Scrn Negative (Negative) Ur Amphetamines Screen Negative (Negative) U Methamphetamines Scrn Negative (Negative) U Benzodiazepines Scrn Negative (Negative) Urine Cocaine Screen Negative (Negative) U Marijuana (THC) Screen Negative (Negative) Ur Drug Screen Comment See Note Ethyl Alcohol < 0.01 (0.01-0.03) % SARS-CoV-2 (PCR) Negative SARS-CoV-2 (Negative) 08/08/25 Range/Units 20:19 WBC (4.50-11.00) K/uL RBC (4.30-5.90) m/uL Hgb (13.5-17.5) gm/dL Hct (37.0-53.0) % MCV (80-100) fL MCH (26-34) pg MCHC (32-36) gm/dL RDW Coeff of Naila (11.5-15.5) % Plt Count (140-440) K/uL Neut % (Auto) (42.0-72.0) % Lymph % (Auto) (20-44) % [place] % (Auto) (0.0-11.0) % Eos % (Auto) (0.0-7.0) % Baso % (Auto) (0.0-3.0) % Neut # (Auto) (1.7-7.0) K/uL Lymph # (Auto) (0.90-2.90) K/uL [place] # (Auto) (0.00-0.90) K/UL Eos # (Auto) (0.00-0.50) K/uL Baso # (Auto) (0.00-0.30) K/uL Abs Immat Gran (auto) (0.00-0.30) K/uL Imm/Tot Granulo (auto) % Sodium 138 (135-149) mmol/L Potassium 4.0 (3.6-5.1) mmol/L Chloride 104 (96-114) mmol/L Carbon Dioxide 26 (20-32) mmol/L Anion Gap 8 (7-15) mEq/L BUN 14 (5-24) mg/dL Creatinine 0.8 (0.5-1.5) mg/dL Estimated Creat Clear 141.59 Estimated GFR 127 ml/min Glucose 105 (60-115) mg/dL Calcium 9.7 (8.4-10.6) mg/dL TSH (0.270-4.200) uIU/mL Salicylates (1.0-10) mg/dL Urine Opiates Screen (Negative) Ur Oxycodone Screen (Negative) Urine Methadone Screen (Negative) Acetaminophen (10.0-30.0) ug/mL Ur Barbiturates Screen (Negative) U Tricyclic Antidepress (Negative) Ur Phencyclidine Scrn (Negative) Ur Amphetamines Screen (Negative) U Methamphetamines Scrn (Negative) U Benzodiazepines Scrn (Negative) Urine Cocaine Screen (Negative) U Marijuana (THC) Screen (Negative) Ur Drug Screen Comment Ethyl Alcohol (0.01-0.03) % SARS-CoV-2 (PCR) (Negative) <Derick Medrano MD - Last Filed: 08/07/25 09:08> Lab Results 08/05/25 08/05/25 08/05/25 Range/Units 02:30 02:35 08:36 WBC 8.82 (4.50-11.00) K/uL RBC 4.15 L (4.30-5.90) m/uL Hgb 12.6 L (13.5-17.5) gm/dL Hct 36.5 L (37.0-53.0) % MCV 88 (80-100) fL MCH 30 (26-34) pg MCHC 35 (32-36) gm/dL RDW Coeff of Naila 11.8 (11.5-15.5) % Plt Count 195 (140-440) K/uL Neut % (Auto) 79.0 H (42.0-72.0) % Lymph % (Auto) 10.8 L (20-44) % [place] % (Auto) 8.4 (0.0-11.0) % Eos % (Auto) 1.5 (0.0-7.0) % Baso % (Auto) 0.2 (0.0-3.0) % Neut # (Auto) 7.00 (1.7-7.0) K/uL Lymph # (Auto) 1.00 (0.90-2.90) K/uL [place] # (Auto) 0.70 (0.00-0.90) K/UL Eos # (Auto) 0.13 (0.00-0.50) K/uL Baso # (Auto) 0.02 (0.00-0.30) K/uL Abs Immat Gran (auto) 0.01 (0.00-0.30) K/uL Imm/Tot Granulo (auto) 0.1 % Sodium 139 (135-149) mmol/L Potassium 3.0 L (3.6-5.1) mmol/L Chloride 103 (96-114) mmol/L Carbon Dioxide 25 (20-32) mmol/L Anion Gap 11 (7-15) mEq/L BUN 18 (5-24) mg/dL Creatinine 1.2 (0.5-1.5) mg/dL Estimated Creat Clear 94.39 Estimated GFR 87 ml/min Glucose 118 H (60-115) mg/dL Calcium 9.9 (8.4-10.6) mg/dL TSH 2.140 (0.270-4.200) uIU/mL Salicylates < 1.0 L (1.0-10) mg/dL Urine Opiates Screen Negative (Negative) Ur Oxycodone Screen Negative (Negative) Urine Methadone Screen Negative (Negative) Acetaminophen < 10.0 (10.0-30.0) ug/mL Ur Barbiturates Screen Negative (Negative) U Tricyclic Antidepress Negative (Negative) Ur Phencyclidine Scrn Negative (Negative) Ur Amphetamines Screen Negative (Negative) U Methamphetamines Scrn Negative (Negative) U Benzodiazepines Scrn Negative (Negative) Urine Cocaine Screen Negative (Negative) U Marijuana (THC) Screen Negative (Negative) Ur Drug Screen Comment See Note Ethyl Alcohol < 0.01 (0.01-0.03) % SARS-CoV-2 (PCR) Negative SARS-CoV-2 (Negative) 08/08/25 Range/Units 20:19 WBC (4.50-11.00) K/uL RBC (4.30-5.90) m/uL Hgb (13.5-17.5) gm/dL Hct (37.0-53.0) % MCV (80-100) fL MCH (26-34) pg MCHC (32-36) gm/dL RDW Coeff of Naila (11.5-15.5) % Plt Count (140-440) K/uL Neut % (Auto) (42.0-72.0) % Lymph % (Auto) (20-44) % [place] % (Auto) (0.0-11.0) % Eos % (Auto) (0.0-7.0) % Baso % (Auto) (0.0-3.0) % Neut # (Auto) (1.7-7.0) K/uL Lymph # (Auto) (0.90-2.90) K/uL [place] # (Auto) (0.00-0.90) K/UL Eos # (Auto) (0.00-0.50) K/uL Baso # (Auto) (0.00-0.30) K/uL Abs Immat Gran (auto) (0.00-0.30) K/uL Imm/Tot Granulo (auto) % Sodium 138 (135-149) mmol/L Potassium 4.0 (3.6-5.1) mmol/L Chloride 104 (96-114) mmol/L Carbon Dioxide 26 (20-32) mmol/L Anion Gap 8 (7-15) mEq/L BUN 14 (5-24) mg/dL Creatinine 0.8 (0.5-1.5) mg/dL Estimated Creat Clear 141.59 Estimated GFR 127 ml/min Glucose 105 (60-115) mg/dL Calcium 9.7 (8.4-10.6) mg/dL TSH (0.270-4.200) uIU/mL Salicylates (1.0-10) mg/dL Urine Opiates Screen (Negative) Ur Oxycodone Screen (Negative) Urine Methadone Screen (Negative) Acetaminophen (10.0-30.0) ug/mL Ur Barbiturates Screen (Negative) U Tricyclic Antidepress (Negative) Ur Phencyclidine Scrn (Negative) Ur Amphetamines Screen (Negative) U Methamphetamines Scrn (Negative) U Benzodiazepines Scrn (Negative) Urine Cocaine Screen (Negative) U Marijuana (THC) Screen (Negative) Ur Drug Screen Comment Ethyl Alcohol (0.01-0.03) % SARS-CoV-2 (PCR) (Negative) <Byron Donovan MD - Last Filed: 08/08/25 18:23> Lab Results 08/05/25 08/05/25 08/05/25 Range/Units 02:30 02:35 08:36 WBC 8.82 (4.50-11.00) K/uL RBC 4.15 L (4.30-5.90) m/uL Hgb 12.6 L (13.5-17.5) gm/dL Hct 36.5 L (37.0-53.0) % MCV 88 (80-100) fL MCH 30 (26-34) pg MCHC 35 (32-36) gm/dL RDW Coeff of Naila 11.8 (11.5-15.5) % Plt Count 195 (140-440) K/uL Neut % (Auto) 79.0 H (42.0-72.0) % Lymph % (Auto) 10.8 L (20-44) % [place] % (Auto) 8.4 (0.0-11.0) % Eos % (Auto) 1.5 (0.0-7.0) % Baso % (Auto) 0.2 (0.0-3.0) % Neut # (Auto) 7.00 (1.7-7.0) K/uL Lymph # (Auto) 1.00 (0.90-2.90) K/uL [place] # (Auto) 0.70 (0.00-0.90) K/UL Eos # (Auto) 0.13 (0.00-0.50) K/uL Baso # (Auto) 0.02 (0.00-0.30) K/uL Abs Immat Gran (auto) 0.01 (0.00-0.30) K/uL Imm/Tot Granulo (auto) 0.1 % Sodium 139 (135-149) mmol/L Potassium 3.0 L (3.6-5.1) mmol/L Chloride 103 (96-114) mmol/L Carbon Dioxide 25 (20-32) mmol/L Anion Gap 11 (7-15) mEq/L BUN 18 (5-24) mg/dL Creatinine 1.2 (0.5-1.5) mg/dL Estimated Creat Clear 94.39 Estimated GFR 87 ml/min Glucose 118 H (60-115) mg/dL Calcium 9.9 (8.4-10.6) mg/dL TSH 2.140 (0.270-4.200) uIU/mL Salicylates < 1.0 L (1.0-10) mg/dL Urine Opiates Screen Negative (Negative) Ur Oxycodone Screen Negative (Negative) Urine Methadone Screen Negative (Negative) Acetaminophen < 10.0 (10.0-30.0) ug/mL Ur Barbiturates Screen Negative (Negative) U Tricyclic Antidepress Negative (Negative) Ur Phencyclidine Scrn Negative (Negative) Ur Amphetamines Screen Negative (Negative) U Methamphetamines Scrn Negative (Negative) U Benzodiazepines Scrn Negative (Negative) Urine Cocaine Screen Negative (Negative) U Marijuana (THC) Screen Negative (Negative) Ur Drug Screen Comment See Note Ethyl Alcohol < 0.01 (0.01-0.03) % SARS-CoV-2 (PCR) Negative SARS-CoV-2 (Negative) 08/08/25 Range/Units 20:19 WBC (4.50-11.00) K/uL RBC (4.30-5.90) m/uL Hgb (13.5-17.5) gm/dL Hct (37.0-53.0) % MCV (80-100) fL MCH (26-34) pg MCHC (32-36) gm/dL RDW Coeff of Naila (11.5-15.5) % Plt Count (140-440) K/uL Neut % (Auto) (42.0-72.0) % Lymph % (Auto) (20-44) % [place] % (Auto) (0.0-11.0) % Eos % (Auto) (0.0-7.0) % Baso % (Auto) (0.0-3.0) % Neut # (Auto) (1.7-7.0) K/uL Lymph # (Auto) (0.90-2.90) K/uL [place] # (Auto) (0.00-0.90) K/UL Eos # (Auto) (0.00-0.50) K/uL Baso # (Auto) (0.00-0.30) K/uL Abs Immat Gran (auto) (0.00-0.30) K/uL Imm/Tot Granulo (auto) % Sodium 138 (135-149) mmol/L Potassium 4.0 (3.6-5.1) mmol/L Chloride 104 (96-114) mmol/L Carbon Dioxide 26 (20-32) mmol/L Anion Gap 8 (7-15) mEq/L BUN 14 (5-24) mg/dL Creatinine 0.8 (0.5-1.5) mg/dL Estimated Creat Clear 141.59 Estimated GFR 127 ml/min Glucose 105 (60-115) mg/dL Calcium 9.7 (8.4-10.6) mg/dL TSH (0.270-4.200) uIU/mL Salicylates (1.0-10) mg/dL Urine Opiates Screen (Negative) Ur Oxycodone Screen (Negative) Urine Methadone Screen (Negative) Acetaminophen (10.0-30.0) ug/mL Ur Barbiturates Screen (Negative) U Tricyclic Antidepress (Negative) Ur Phencyclidine Scrn (Negative) Ur Amphetamines Screen (Negative) U Methamphetamines Scrn (Negative) U Benzodiazepines Scrn (Negative) Urine Cocaine Screen (Negative) U Marijuana (THC) Screen (Negative) Ur Drug Screen Comment Ethyl Alcohol (0.01-0.03) % SARS-CoV-2 (PCR) (Negative) <David Ohara MD - Last Filed: 08/09/25 23:09> Discharge Plan Discharge Clinical Impression: Psychosis <Megan Peter MD - Last Filed: 08/10/25 08:31> Patient Disposition: Admitted As Observation <Megan Peter MD - Last Filed: 08/10/25 08:31> Condition: Improved <Megan Peter MD - Last Filed: 08/10/25 08:31>
[2025-08-05 02:40] LABS: Hematocrit 36.5 % (37.0-53.0); Hemoglobin* 12.6 gm/dL (13.5-17.5); Immature Granulocytes Abs Auto 0.01 K/uL (0.00-0.30); Immature Granulocytes Pct Auto 0.1 %; Mean Corpuscular HGB Conc 35 gm/dL (32-36); Mean Corpuscular Hemoglobin 30 pg (26-34); Mean Corpuscular Volume 88 fL (80-100); RDW Coefficient of Variation % 11.8 % (11.5-15.5); Red Blood Count 4.15 m/uL (4.30-5.90); White Blood Count* 8.82 K/uL (4.50-11.00)
[2025-08-05 02:43] LABS: Lymphocytes Absolute Auto 1.00 K/uL (0.90-2.90); Slide Review Reflex No
[2025-08-05] MEDS: diazePAM 5 MG/ML inj 10 MG IM (02:45)
[2025-08-05 02:50] LABS: Cannabinoid Screen Urine Negative (Negative); Methamphetamines Screen Urine Negative (Negative); Tricyclic Antidepressant Urine Negative (Negative)
[2025-08-05 02:52] LABS: Chloride* 103 mmol/L (96-114); Sodium* 139 mmol/L (135-149)
[2025-08-05 02:53] LABS: Potassium* 3.0 mmol/L (3.6-5.1)
[2025-08-05 02:55] LABS: Anion Gap 11 mEq/L (7-15); Blood Urea Nitrogen* 18 mg/dL (5-24); Calcium* 9.9 mg/dL (8.4-10.6); Carbon Dioxide* 25 mmol/L (20-32); Creatinine* 1.2 mg/dL (0.5-1.5); Est. Creatinine Clearance* 94.39; Estimated Glomerular Filt Rate 87 ml/min; Glucose* 118 mg/dL (60-115)
[2025-08-05 02:56] LABS: Acetaminophen* < 10.0 ug/mL (10.0-30.0); Ethanol* < 0.01 % (0.01-0.03); Salicylate* < 1.0 mg/dL (1.0-10)
[2025-08-05 03:27] LABS: TSH With Reflex to FT4* 2.140 uIU/mL (0.270-4.200)
[2025-08-05 11:05] LABS: SARS PCR* Negative SARS-CoV-2 (Negative)
[2025-08-06] VITALS (71 sets, daily range): BP systolic 94–134; BP diastolic 45–85; PULSE 50–103; RESP 0–20; TEMP 36.2–37.3; O2SAT 92–98
--- NOTE | 2025-08-06 16:59 | PC.SOCIAL ---
Social Service Consult: habilitation worker met with the pt at the request of the ED physician on duty to provide the pt with outpatient mental health/LGBTQIA resources in the event that she were deemed safe to discharge over the weekend before the 72 hour hold is lifted. Pt was placed on a 72 hour hold on 08/05/25 at 14:52 which will last until 08/10/25 at 14:52 unless one of the physicians lifts it. Right now, the plan will be for the pt to stay in the hospital overnight and be reassessed on Saturday by [facility]. habilitation worker provided the pt with information on the outpatient clinic, [facility], and information on [facility]. habilitation worker also provided the pt with information on [facility] mental health resources and therapy agencies in [place]. habilitation worker also provided the pt with information on [facility], who has gender affirming providers for psych/med management. All of these resources were also provided to the pt and her family last time she was in the hospital towards the end of June 2025(see previous social work notes). [facility] had been recommending inpatient psychiatric mental health treatment, but were unsuccessful in finding placement. Most facilities declined due to the pt being too high of acuity and having pending charges and not being able to cross state lines. As stated before, [facility] will reassess the pt on Saturday to see if the hold needs to remain in place or the pt is safe to discharge. When this worker met with the pt, she expressed interest in going to inpatient psychiatric treatment and was even asking this worker what types of items she would be allowed to bring with her to an inpatient facility. Social work to follow-up as needed.
[2025-08-07 05:12] VITALS: BP 124/79; PULSE 91; RESP 16; TEMP 37.1; O2SAT 98
[2025-08-07 13:25] VITALS: BP 120/91; PULSE 61; RESP 18; O2SAT 98
[2025-08-07 22:07] VITALS: BP 114/78; PULSE 79; RESP 16; TEMP 36.8; O2SAT 98
[2025-08-08 05:05] VITALS: BP 119/75; PULSE 74; RESP 16; TEMP 36.7; O2SAT 98
[2025-08-08] MEDS: SPIRONOLACTONE 25 MG TABLET 50 MG PO ×2 (12:17→20:59)
[2025-08-08 13:50] VITALS: BP 130/92; PULSE 75; RESP 17; TEMP 36.7; O2SAT 98
[2025-08-08 20:37] LABS: Chloride* 104 mmol/L (96-114)
[2025-08-08 20:38] LABS: Potassium* 4.0 mmol/L (3.6-5.1); Sodium* 138 mmol/L (135-149)
[2025-08-08 20:40] LABS: Blood Urea Nitrogen* 14 mg/dL (5-24); Creatinine* 0.8 mg/dL (0.5-1.5); Est. Creatinine Clearance* 141.59; Estimated Glomerular Filt Rate 127 ml/min
[2025-08-08 20:41] LABS: Anion Gap 8 mEq/L (7-15); Calcium* 9.7 mg/dL (8.4-10.6); Carbon Dioxide* 26 mmol/L (20-32); Glucose* 105 mg/dL (60-115)
[2025-08-08 21:14] VITALS: BP 124/84; PULSE 71; RESP 16; TEMP 36.7; O2SAT 98
[2025-08-09 05:30] VITALS: BP 119/74; PULSE 70; RESP 16; TEMP 36.7; O2SAT 98
[2025-08-09] MEDS: SPIRONOLACTONE 25 MG TABLET 50 MG PO ×2 (08:36→22:17)
[2025-08-09 08:58] VITALS: BP 129/75; PULSE 78; RESP 16; TEMP 36.6; O2SAT 100
[2025-08-09 12:09] VITALS: BP 124/81; PULSE 82; RESP 16; TEMP 36.7
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
--- NOTE | 2025-08-09 16:00 | PC.SOCIAL ---
Discharge planning: SW called multiple facilities in an attempt to find inpatient psych placement for patient. [facility] and [facility] stated they have reviewed multiple times and declined due to pending charges. SW called [facility], [place], [facility], [facility], and other facilities, however, all said they were at capacity or that SW should call back again this evening. BELINDA provided this list to RN who will continue to look for placement along with Shayan. Provider completed physician statement for commitment. BELINDA spoke with Carissa Yeh at [facility] who asked for this along with demographic information, physician commitment statements, ED provider notes, hold paperwork, and any other supporting documentation. BELINDA secure emailed this to Carissa. BELINDA to continue to support with discharge and placement.
[2025-08-09 16:01] VITALS: BP 126/82; PULSE 80; RESP 18; TEMP 36.7; O2SAT 99
[2025-08-10] MEDS: SPIRONOLACTONE 25 MG TABLET 50 MG PO ×2 (09:33→21:17)
--- NOTE | 2025-08-10 09:52 | ED.NURSE ---
Patient ordered breakfast. Accepted AM medications. Parents arrived and were updated on patient's care and plan. Patient making good eye contact and engaging in conversation.
[2025-08-10 12:13] VITALS: BP 122/78; PULSE 99; RESP 20; TEMP 37.1; O2SAT 98
--- NOTE | 2025-08-10 14:14 | PC.SOCIAL ---
Addendum entered by MADHURI Reza 08/10/25 17:13: Upon further discussion with the care team, decision has been made not to appeal decision of the [facility] Prepetition team not to move forward with committment process. workers' compensation magistrate made the following calls regarding bed availability for in-pt mental health placement. Shared with pt and father plan for move from ED to Med/surg awaiting voluntary mental health placement. 1. [facility] - no beds available, call back tomorrow. 2. [facility] - no beds available, call back tomorrow. 3. [facility] - no beds today, call back tomorrow. 4. [facility], no answer. 5. [facility] [phone] - determined pt does not meet criteria for in-pt mental health placement at this time. workers' compensation magistrate to follow up as needed. Original Note: Continuing Education Specialist: Called Carissa Yeh, [facility] Adult Protection regarding decision on commitment process. Meera stated [facility] has decided not to move forward on commitment as pt has agreed to stay at the hospital voluntarily for placement and has agreed to [facility] Mental Health Case Management. Meera shared there is a process for the hospital to appeal the commitment decision. [facility] Mental Health case management sanitation worker, Taylor Hsu emailed forms for pt to complete to apply for Mental Health case management and a form for provider referral for case management. Delivered pt form for her to complete. Answered pt's questions regarding the form. Pt states she will work on the form and let social worker aide know if she has questions. Confirmed with pt that she is willing to stay at the hospital voluntarily when the hold expires to await mental health placement. workers' compensation magistrate called back to Carissa Yeh and Daniela Choi at [facility] and left messages requesting more information on the process to appeal [facility] decision not to move forward with commitment as the hospital would like to file an appeal. workers' compensation magistrate to follow up as needed.
--- NOTE | 2025-08-10 16:02 | PC.SOCIAL ---
Discharge planning: BELINDA received email from Carissa Yeh requesting Physican Statement as she did not see it attached in the documentation BELINDA sent. BELINDA sent this to Carissa. BELINDA inquired about timeline and process. BELINDA did not get a response. BELINDA called Carissa and left a voicemail asking for an update about status of commitment. BELINDA did not get a response. BELINDA called Taylor Morris [phone], who Carissa had attached to an email, as Taylor sent Adult Mental Health Case Management forms for patient. BELINDA inquired about why the forms were sent and if the patient needed to complete them or SW as CM is typically voluntary. Taylor explained that Carissa met with the patient and the patient agreed to voluntary CM services and that patient could complete the forms and SW could assist. BELINDA inquired about status of commitment and Taylor states that it was voted down. BELINDA handed off case to BELINDA user support analyst supervisor Micaela.
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
[2025-08-10 19:30] VITALS: BP 139/93; PULSE 94; RESP 18; TEMP 36.9; O2SAT 100
[2025-08-10 20:11] VITALS: BMI 20.4
[2025-08-10 20:55] VITALS: BP 139/93; PULSE 94; RESP 18; TEMP 36.9; O2SAT 100
[2025-08-10 23:00] VITALS: PULSE 94; RESP 18
--- NOTE | 2025-08-11 05:11 | PC.NURSE ---
end of shift: Pt is AOx4. VSS. Pt has flat affect. Pt. understands voluntary status. Pt. denies nausea or pain. Pt behaviorally stable. Pt has been on 1:1 monitoring throughout the night.
[2025-08-11 07:00] VITALS: PULSE 74
[2025-08-11] MEDS: SPIRONOLACTONE 25 MG TABLET 50 MG PO (09:20)
--- NOTE | 2025-08-11 10:18 | PM.IMPN1 ---
Assessment and Plan Assessment and plan (1) Psychosis: Problem comment: -acute, recurrent -ED visits 07/11/2025 and 08/05/2025 -initially violent and unsafe upon ER arrival and placed on 72 hour hold (which 08/10) -continue olanzapine HS, has prn olanzapine and diazepam available -discussed with social media assistant, will continue to seek inpatient placement for evaluation and management as well as options for outpatient management if no bed availability -PCP is Dr. Birmingham, sees family day carer at [facility] as well Status: Acute (2) Anxiety and depression: Problem comment: -home meds include fluoxetine but has not been taking -most recent behavioral health assessment 08/09/2025 documents no suicidal or homicidal ideation Status: Acute (3) ADHD: Problem comment: -noted EMR Status: Acute (4) Gender dysphoria: Problem comment: -pronouns she/her -continue estradiol, spironolactone -Dr. Birmingham is PCP and primary prescriber Status: Acute Plan - patient would most benefit from inpatient psychiatric diagnosis and management given 2 episodes of acute psychosis in the past month - unfortunately, it does not appear that any inpatient sites are able to take patient based on current lack of symptoms - if not able to find placement, has outpatient support and would recommend close f/u with PCP and psych Subjective Date Seen: 08/11/25 Interval history: Maryann was admitted to the hospital last night after a lengthy ER stay (which included a 72 hour hold) for acute psychosis in the setting of recently increased restless, agitation, and new concerning behaviors. During ER stay, evaluated by [facility] psych team and placement was recommended; unfortunately, unable to find safe placement. After 72 hour hold , Maryann was willing to stay and await further plans. She is taking Olanzapine at HS and Valium at HS prn for psych medications and currently denies any thoughts of self harm or paranoia/delusions. She has not been seen by a psychiatrist during stay here. No medical concerns for hospitalist team today. Exam Narrative: Exam Narrative: GEN: Calm and cooperative, sitting comfortably in bedside chair HEENT: EOMIs bilaterally, no scleral icterus CV: RRR, No concerning murmurs R: LCTA bilaterally Ext: wwp, no concerning edema Neuro: No focal deficits Psych: No agitation, calm and appropriately interactive Const: Vital Signs, click to edit/add: Vital Signs - 24 hr 08/10/25 12:13 08/10/25 19:30 08/10/25 20:55 Temperature 98.8 F 98.5 F 98.5 F Pulse Rate [Pulse Oximeter] 94 94 Pulse Rate [Right Pulse Oximeter] 99 Respiratory Rate 20 18 18 Blood Pressure [Le ft Arm] 139/93 H 139/93 H Blood Pressure [Ri ght Upper Arm] 122/78 Pulse Oximetry 98 100 100 Oxygen Delivery Me thod Room Air Room Air Room Air 08/10/25 23:00 Temperature Pulse Rate [Pulse Oximeter] 94 Pulse Rate [Right Pulse Oximeter] Respiratory Rate 18 Blood Pressure [Le ft Arm] Blood Pressure [Ri ght Upper Arm] Pulse Oximetry Oxygen Delivery Me thod
--- NOTE | 2025-08-11 15:06 | PC.SOCIAL ---
Addendum entered by Micaela Denis DIGITAL PRODUCER 08/11/25 17:28: Pt has been accepted for in-pt mental health to [facility] for admission today. Met with pt who is in agreement with this plan. At pt request, call ed parents to inform them of this plan and to ask them to come in to visit with pt before she is transferred. Met again with pt and parents present. Patient confirmed decision for transfer to [facility] today. Answered all questions of pt and parents. Pt is aware and agrees with required ambulance transfer. Original Note: Discharge planning: Worked on both an in-pt acute mental health placement plan and a back up out-pt mental health discharge plan. In-pt mental health discharge plan: Called the following in-pt mental health facilities regarding bed availability: 1. [facility] and spoke with intake. Provided information and was informed [facility] will call back if they have a bed available. 2. [facility]: Spoke with intake who stated pt does not meet criteria for acute in-pt mental health placement and suggested pt have out-pt follow up instead of in-pt placement. 3. [facility] [phone]. Called and faxed referral for evaluation for admit. Confirmed receipt of referral and awaiting call back with decision on admit. Out-pt mental health discharge plan: 1. Called [facility] and confirmed [facility] has a program for adults out of several clinic including [facility] for adults with mental health conditions. This is an intensive Saturday-Saturday 6 hours a day program. There is currently a 1.5 week wait for an initial intake for this program. Pt can reach out directly to request an assessment or hospital can fax a referral to [phone] and program will contact pt for an intake assessment. precision layout worker will follow up with these out-pt options if pt is not eligible for acute in-pt placement. 2. Secure emailed form completed by pt and professional referral form from social media content manager for the [facility] to Taylor Crawford at [facility] intake. Confirmed receipt of this form. Social work to follow up as needed.
--- NOTE | 2025-08-11 16:26 | P.DS_ITS ---
DS: Providers Provider Date Seen: 08/11/25 Date of admission: 08/10/25 18:51 Primary care physician: Cordelia Birmingham MD Admitting Clinician: DEVIN Brambila PA-C Hardin Batshevaist Consults: 08/06/25 11:19 Consult to Banana Ripening Room Supervisor [CONS] Urgent Comment: Reason for Consult:: Discharge Planning Needs 08/10/25 18:50 Consult to Banana Ripening Room Supervisor [CONS] Routine Comment: Reason for Consult:: Social Service Consult Attending Physician on discharge: DEVIN Brambila PA-C Hardin Clark Date of Discharge: 08/11/25 DS: Diagnosis Discharge Diagnosis (1) Psychosis: Status: Acute Problem details: -acute, recurrent -ED visits 07/11/2025 and 08/05/2025 -initially violent and unsafe upon ER arrival and placed on 72 hour hold (which 08/10) -continue olanzapine HS, has prn olanzapine and diazepam available -discussed with administrator social welfare, will continue to seek inpatient placement for evaluation and management as well as options for outpatient management if no bed availability -PCP is Dr. Birmingham, sees cheesemaker at [facility] as well (2) Anxiety and depression: Status: Acute Problem details: -home meds include fluoxetine but has not been taking -most recent behavioral health assessment 08/09/2025 documents no suicidal or homicidal ideation (3) ADHD: Status: Acute Problem details: -noted EMR (4) Gender dysphoria: Status: Acute Problem details: -pronouns she/her -continue estradiol, spironolactone -Dr. Birmingham is PCP and primary prescriber DS: Summary Hospital Course Hospital Course: Patient admitted on 08/10 following 5 day stay in the ED with supportive administrator social welfare attempting to find inpatient psychiatric placement. Patient remained calm and cooperative. Continued on olanzapine nightly. Not requiring any p.r.n. medications. Bed availability found at [facility]. Transferred via BLS on transfer hold. Status at Discharge Functional status at discharge: independent ambulation Time Spent with Patient Time attestation: Total time spent providing and/or coordinating discharge services: Time spent: Greater than 30 minutes Exam Narrative: Exam Narrative: PHYSICAL EXAM General: NAD Cardiovascular: RRR Pulmonary: No dyspnea Neurological: Alert, cooperative, answering questions appropriately Skin: Warm, dry. Const: Vital Signs, click to edit/add: Vital Signs - 24 hr 08/10/25 19:30 08/10/25 20:55 08/10/25 23:00 Temperature 98.5 F 98.5 F Pulse Rate [Pulse Oximeter] 94 94 94 Respiratory Rate 18 18 18 Blood Pressure [Le ft Arm] 139/93 H 139/93 H Pulse Oximetry 100 100 Oxygen Delivery Me thod Room Air Room Air 08/11/25 07:00 Temperature Pulse Rate [Pulse Oximeter] 74 Respiratory Rate Blood Pressure [Le ft Arm] Pulse Oximetry Oxygen Delivery Me thod Discharge Plan Discharge Disposition: [facility] Discharge Location: [facility] Date of Admission: 08/10/25 18:51 Attending Provider on Discharge: Ramila Berger Primary Care Provider: Cordelia Birmingham Condition: Improved Discharge Orders: Transfer of Care to Other Hospital (ORDER); Ordered 08/11/25 Ordered By: Brooklynn Bangura Discharge Comments: Transfer hold signed Oxygen: No Urinary Catheter: No Services not available here: Inpatient psychiatry
--- NOTE | 2025-08-11 19:05 | PC.NURSE ---
Patient was pleasant and cooperative throughout shift. VSS. Afebrile. No pain reported. Calm and cooperative demeanor at discharge. Accompanied by parents. Patient discharged at 1830.
== END 2025-08-11 18:30 | disposition short-term general hospital (02) ==
LOC: ED 08-10 18:01 → MEDSURG 08-10 19:47
PROVIDERS: Emergency Medicine; Family Medicine; Admitting Provider Family Medicine; Emergency Provider Student in an Organized Health Care Education/Training Program; PCP Family Medicine; Visit Provider Family Medicine
DX: F23 Brief psychotic disorder (principal); F41.9 Anxiety disorder, unspecified; F32.A Depression, unspecified; F90.9 Attention-deficit hyperactivity disorder, unspecified type; F64.9 Gender identity disorder, unspecified
CPT/HCPCS: 36415; 80048; 80143; 80179; 80306; 82077; 84443; 85025; 87635; 94761; 96372; 99285; Q3014; A9270; G0378; J1200; J1630; J2060; J3360

== ENCOUNTER 2025-08-11 18:16 | Outpatient (CLI) | payer BC, SELFPAY | END 2025-08-11 18:17 | disposition home or self-care (01) | LOC: AMB 08-12 13:11 | PROVIDERS: PCP Family Medicine; Visit Provider Family Medicine | DX: F29 Unspecified psychosis not due to a substance or known physiological condition (principal) | CPT/HCPCS: A0425; A0428 ==